=== PATIENT | female | born 1995 | race African-American/Black ===

== ENCOUNTER 2019-03-08 14:40 | Inpatient (IN) | payer MEDICAID ==
[~2019-03-08] VITALS: Ht 162.6 cm; Wt 45.4 kg
--- NOTE | 2019-03-08 16:32 | ERD ---
ER Documentation Chief Complaint Chief Complaint gen body pain from sicke cell pain. no trauma. seen in [place] [facility] for same HPI The patient is a 23-year-old female, presenting to the ER because of general body pain, back pain, chest pain, headache for 1 day. She had similar symptoms previously, she was seen at [facility] the ER prior to coming to our emergency department. She has frequent pain crisis similar symptoms. She denies fever, chills, cough, neck pain, chest pain, vomiting, abdominal pain, dysuria, diarrhea. She does not smoke nor drink, smokes marijuana Past medical history: Sickle cell anemia Past surgical history: Cholecystectomy, right knee arthroscopy ROS All systems reviewed and are negative except as per history of present illness. Medications Home Meds Reported Medications Deferasirox (Jadenu) 360 Mg Tablet, 360 MG PO DAILY, TAB 03/08/19 Folic Acid* (Folic Acid*) 1 Mg Tablet, 1 MG PO DAILY, TAB 03/08/19 Oxycodone Hcl* (IR) (Oxycodone Hcl*) 15 Mg Tablet, 15 MG PO BID PRN for PAIN, TAB 03/08/19 Hydroxyurea* (Hydroxyurea*) 500 Mg Capsule, 500 MG PO BID, CAP 03/08/19 Allergies Allergies: Coded Allergies: No Known Allergy (Unverified , 03/08/19) Physical Exam Vitals Vital Signs Date Temp Pulse Resp B/P (MAP) Pulse Ox O2 O2 Flow FiO2 Time Delivery Rate 03/08/19 92 18 97 21 17:35 03/08/19 97.9 88 18 108/70 97 Room Air 17:00 (83) 03/08/19 97.9 92 18 108/70 97 14:45 (83) Physical Exam Const: No acute distress. Head: Atraumatic. Eyes: Normal Conjunctiva. ENT: Normal External Ears, Nose and Mouth. Neck: Full range of motion. No meningismus. Resp: Mild ilateral expiratory wheezes Cardio: Regular rate and rhythm. Abd: Soft, non distended, normal bowel sounds, vague and minimal diffuse abdominal discomfort, no rigidity/rebound/CVA tenderness Skin: No petechiae or rashes. Back: No midline or flank tenderness. Ext: No cyanosis, or edema. Neur: Awake and alert. No focal deficit Psych: Normal Mood and Affect. Result Diagram: 03/08/19 1740 03/08/19 1740 Results 24 hrs Laboratory Tests Test 03/08/19 17:38 03/08/19 17:39 03/08/19 17:40 POC Beta HCG, Qualitative NEGATIVE Absolute Reticulocyte Count 0.825 X10^6 Percent Reticulocyte Count 31.9 % White Blood Count 12.8 10^3/ul Red Blood Count 2.56 10^6/ul Hemoglobin 8.8 g/dl Hematocrit 24.4 % Mean Corpuscular Volume 95.3 fl Mean Corpuscular Hemoglobin 34.4 pg Mean Corpuscular 36.1 g/dl Hemoglobin Concent Red Cell Distribution Width 24.3 % Platelet Count 240 10^3/UL Mean Platelet Volume 11.7 fl Immature Granulocytes % 1.300 % Neutrophils % % Segmented Neutrophils % (Manual) 46 % Band Neutrophils % (Manual) 4 % Lymphocytes % % Lymphocytes % (Manual) 41 % Monocytes % % Monocytes % (Manual) 5 % Eosinophils % % Eosinophils % (Manual) 4 % Basophils % % Nucleated Red Blood Cells % 29 % Immature Granulocytes # 0.160 10^3/ul Neutrophils # 10^3/ul Neutrophils # (Manual) 6.0 10^3/ul Band Neutrophils # 0.5 10^3/ul Lymphocytes (Manual) 5.2 10^3/ul Lymphocytes # 10^3/ul Monocytes # 10^3/ul Monocytes # (Manual) 0.6 10^3/ul Eosinophils # 10^3/ul Basophils # 10^3/ul Nucleated Red Blood Cells # 10^3/ul Platelet Estimate NORMAL Giant Platelets 2 % Polychromasia 2+ Poikilocytosis 3+ Anisocytosis 2+ Microcytosis 1+ Macrocytosis 2+ Sickle Cells 2+ Target Cells 3+ Sodium Level 141 mmol/L Potassium Level 3.4 mmol/L Chloride Level 105 mmol/L Carbon Dioxide Level 28 mmol/L Anion Gap 8 Blood Urea Nitrogen 5 mg/dl Creatinine 0.36 mg/dl Est Glomerular Filtrat Rate mL/min > 60 mL/min Glucose Level 85 mg/dl Calcium Level 9.6 mg/dl Total Bilirubin 3.8 mg/dl Direct Bilirubin 0.00 mg/dl Indirect Bilirubin 3.8 mg/dl Aspartate Amino Transf (AST/SGOT) 121 IU/L Alanine 75 IU/L Aminotransferase (ALT/SGPT) Alkaline Phosphatase 148 IU/L Total Protein 8.7 g/dl Albumin 4.7 g/dl Globulin 4.00 g/dl Albumin/Globulin Ratio 1.17 Lipase 27 U/L Beta HCG, Quantitative < 2.4 mIU/ml Current Medications Medications Dose Sig/Edyta Start Time Status Last (Trade) Ordered Route PRN Stop Time Admin Dose Reason Admin 1.25 mg ONCE ONCE 03/08/19 DC 03/08/19 Levalbuterol HHN 17:30 17:34 (Xopenex 03/08/19 17:31 Neb) Ipratropium 0.5 mg ONCE ONCE 03/08/19 DC 03/08/19 [place] HHN 17:30 17:34 (Atrovent 03/08/19 17:31 0.02% (Neb)) Sodium 1,000 ml @ Q1H ONCE 03/08/19 DC 03/08/19 Chloride 1,000 mls/hr IV 17:30 18:30 03/08/19 18:29 0.5 mg ONCE STAT 03/08/19 DC 03/08/19 Hydromorphone IV 17:53 18:30 HCl 03/08/19 17:55 (Dilaudid) 25 mg ONCE ONCE 03/08/19 DC 03/08/19 Diphenhydrami IV 18:00 18:30 ne HCl 03/08/19 18:01 (Benadryl) Sodium 1,000 ml @ [id number] IV 03/08/19 Chloride 75 mls/hr 21:00 IV Flush 3 ml PER 03/08/19 (NS 3 ml) PROTOCOL IV 19:30 Ondansetron 4 mg Q6H PRN 03/08/19 HCl (Zofran IV 19:30 Inj) NAUSEA/VOMITI NG 2 mg Q4H PRN 03/08/19 03/08/19 Hydromorphone IV .SEVERE 19:30 19:47 HCl PAIN 7-10 (Dilaudid) 50 mg Q4H PRN 03/08/19 03/08/19 Diphenhydrami IV itching 19:30 19:48 ne HCl (Benadryl) Folic Acid 1 mg DAILY PO 03/09/19 (Folic Acid) 09:00 Hydroxyurea 500 mg BID PO 03/08/19 (Hydrea) 22:00 Oxycodone 15 mg BID PRN 03/08/19 HCl PO PAIN 19:30 (Roxicodone) Potassium 40 meq ONCE ONCE 03/08/19 DC Chloride PO 22:00 (Potassium 03/08/19 22:01 Chloride Pwd/Soln) Procedures/[place] [id number] Radiology Main Line: [phone] DIAGNOSTIC IMAGING REPORT Patient: CHARLENE DELGADILLO : 1995 Age: 23 Sex: F MR #: [id number] DOS: 03/08/19 1716 Ordering MD: MODE SAUCEDO MD Location: E/R Room/Bed: PROCEDURE: XR Chest. CLINICAL INDICATION: Chest and abdominal pain. TECHNIQUE: Portable AP view of the chest was obtained. COMPARISON: None. FINDINGS: The cardiomediastinal silhouette is mildly enlarged . The lungs are clear. There is no evidence for pleural effusion, pneumothorax or pulmonary vascular congestion. The osseous structures are intact with no evidence for acute abnormality. No free air is demonstrated below the diaphragm. RPTAT:HJJR IMPRESSION: Mild cardiac silhouette enlargement without evidence for acute intrathoracic pathology. Physician Theron Date Time Electronically viewed and signed by Physician Theron on 03/08/2019 18:38 JR/ CC: MODE SAUCEDO MD [id number] Urinalysis/urine /reticulocyte count pending MEDICAL MAKING DECISION: The patient is a 23-year-old female, presenting with acute sickle cell pain crisis. She was treated with Xopenex 1.25 mg and Atrovent 0.5 mg for wheezing, 1 L normal saline for clinical dehydration, Dilaudid 0.5 mg IV for pain, Benadryl 25 mg IV for pruritus and potassium chloride 20 mEq p.o. for acute hypokalemia with good response. The differential diagnoses considered include but are not limited to dehydration, UTI, pneumonia, electrolyte imbalance Departure Diagnosis: Primary Impression: Sickle cell pain crisis Additional Impressions: Hypokalemia Anemia Abnormal LFTs Condition: Stable Comments I discussed the findings with the patient. I discussed the patient with Dr Wilkins ate 6:30p , who was made aware of the lab, the treatment, the patient condition. The patient is admitted to [facility] Disclaimer: Inadvertent spelling and grammatical errors are likely due to EHR/dictation software use and do not reflect on the overall quality of patient care. Also, please note that the electronic time recorded on this note does not necessarily reflect the actual time of the patient encounter. MODE SAUCEDO MD March 08, 2019 16:32
[2019-03-08] MEDS ORDERED: HYDR500C3 PO (17:25)
[2019-03-08] MEDS ORDERED: FOLI-49 PO (17:26)
[2019-03-08] MEDS ORDERED: OXYC15TA PO (17:26)
[2019-03-08] MEDS ORDERED: DEFE360T PO (17:27)
[2019-03-08] MEDS ORDERED: IPRATROPIUM (NEB) 0.5 MG/2.5 ML AMP HHN ONE (17:30)
[2019-03-08] MEDS ORDERED: LEVALBUTEROL (NEB) 1.25 MG/0.5 ML AMP HHN ONE (17:30)
[2019-03-08] MEDS ORDERED: SOD CHLORIDE 0.9% 1,000 ML IV ONE (17:30)
[2019-03-08] MEDS ORDERED: HYDROmorphONE 0.5 MG/0.5 ML SYG IV STA (17:53)
[2019-03-08] MEDS ORDERED: DIPHENHYDRAMINE 50 MG INJ IV ONE (18:00)
[2019-03-08] MEDS ORDERED: NACL 0.9% 3 ML SYG IV SCH (19:30)
[2019-03-08] MEDS ORDERED: ONDANSETRON 4 MG INJ IV PRN (19:30)
--- NOTE | 2019-03-08 19:45 | HP ---
Date/Time of Note Date/Time of Note DATE: 03/08/19 TIME: 19:29 Assessment/Plan VTE Prophylaxis SCD applied (from Nsg): Yes SCD contraindicated: other (not needed) Pharmacological prophylaxis: NA/contraindicated Pharm contraindication: low risk/ambulating Lines/Catheters IV Catheter Type (from Nrsg): [place] Assessment/Plan Assessment/Plan 23 yo woman with sickle cell disease presents in acute pain crisis #Sickle cell disease #Pain crisis - No vision changes, chest pain, or other concerning features - Aggressive fluid hydration - IV opioids prn - Patient is also asking for IV benadryl.... - Will consult hematology in AM for outpatient followup - Repeat Hgb in AM. Currently not requiring transfusion. DVT: SCDs GI: None Result Diagram: 03/08/19 [id number] HPI/ROS Admit Date/Time Admit Date/Time 08 Mar 2019 Hx of Present Illness Ms. Kinney is a 23 yo woman with history of sickle cell disease who presents in crisis. She was in her usual state of health until this past weekend, when she visited family in [place]. She had an active schedule and think she got dehydrated. Around 6pm she developed severe aching back pain and global headache. She took PO oxycodone but pain didn't improve. Couldn't sleep last night due to pain. She says pain is typical of prior crises. No vision changes, or angina-type chest pain. She does have mild pleuritic chest pain when she coughs. Her substance abuse services director is Dr. Mary Alice Lind in [place], but she's planning to move to [place] to be with her ill mother and will need a new substance abuse services director here. She takes all medications as prescribed. Requires oxycodone on average twice daily. Last crisis was 2 months ago, required hospitalization for 4 days and blood transfus ion. She does smoke marijuana. In the ED she was afebrile, vitals stable. Hgb 8.8. Otherwise labs unremarkable. ROS 12 point review of systems done, negative except per HPI. PMH/Family/Social Past Medical History Sickle cell disease Coded Allergies: No Known Allergy (Unverified , 03/08/19) Past Surgical History Cholecystectomy R knee surgery Social History Works two retail jobs. Alcohol Use: none Smoking Status: Never smoker Drug Use: marijuana (smokes marijuana daily. ) Exam/Review of Systems Vital Signs Vitals Vital Signs Date Temp Pulse Resp B/P (MAP) Pulse Ox O2 O2 Flow FiO2 Time Delivery Rate 03/08/19 92 18 97 21 17:35 03/08/19 97.9 108/70 14:45 (83) Exam Exam Gen: Thin woman uncomfortable appearing sitting in [place]. Eyes: PEERL, no icterus HEENT: Moist mucous membranes, clear oropharynx Neck: Stiff, painful range of motion. No lymphadenopathy Back: Exquisite midline spine tenderness throughout. Card: Regular rate and rhythm, no murmurs Pulm: Clear to auscultation bilaterally Abd: Soft, nontender, nondistended. Ext: No cyanosis/clubbing/edema Skin: warm, dry, well perfused. RIKY WOODS MD March 08, 2019 19:43
[2019-03-08] MEDS: HYDROmorphONE 2 MG/ML SYG IV PRN ×2 (19:47→22:21)
[2019-03-08] MEDS: DIPHENHYDRAMINE 50 MG INJ IV PRN ×3 (19:48→23:34)
[2019-03-08] MEDS ORDERED: POTASSIUM CHLORIDE 20 MEQ POWDER FOR ORAL SOLN PO ONE (22:00)
[2019-03-08 22:56] VITALS: Ht 162.6 cm; Wt 45.4 kg
[2019-03-08] MEDS: oxyCODONE 15 MG TAB PO PRN (23:16)
[2019-03-08] MEDS: SOD CHLORIDE 0.9% 1,000 ML IV SCH (23:23)
[2019-03-09] MEDS: HYDROXYUREA 500 MG CAP PO SCH ×3 (01:02→21:14)
[2019-03-09 02:00] VITALS: BP 93/55; PULSE 90; RESP 18
[2019-03-09] MEDS: HYDROmorphONE 2 MG/ML SYG IV PRN ×4 (02:25→20:01)
[2019-03-09] MEDS: DIPHENHYDRAMINE 50 MG INJ IV PRN ×4 (04:50→20:00)
[2019-03-09 08:01] VITALS: BP 105/55; PULSE 94; RESP 18
[2019-03-09] MEDS: FOLIC ACID 1 MG TAB PO SCH (08:53)
[2019-03-09] MEDS: oxyCODONE 15 MG TAB PO PRN ×2 (09:00→21:18)
[2019-03-09] MEDS ORDERED: hydrOXYzine HCL 100 MG INJ IM PRN (12:00)
[2019-03-09] MEDS ORDERED: hydrOXYzine HCL 25 MG TAB PO ONE (12:30)
[2019-03-09] MEDS ORDERED: hydrOXYzine HCL 25 MG TAB ONE (12:32)
[2019-03-09] MEDS: SOD CHLORIDE 0.9% 1,000 ML IV SCH (12:41)
[2019-03-09] MEDS ORDERED: hydrOXYzine HCL 25 MG TAB PO PRN (13:00)
[2019-03-09 14:30] VITALS: BP 99/50; PULSE 91; RESP 18
--- NOTE | 2019-03-09 15:40 | PN ---
Date/Time of Note Date/Time of Note DATE: 03/09/19 TIME: 15:38 Assessment/Plan VTE Prophylaxis Risk score (from Nsg)>0 risk: 3 SCD applied (from Ns): No SCD contraindicated: low risk/ambulating Pharmacological prophylaxis: NA/contraindicated Pharm contraindication: low risk/ambulating Lines/Catheters IV Catheter Type (from Nrsg): Peripheral IV Assessment/Plan Assessment/Plan 23 yo woman with sickle cell disease presents in acute pain crisis #Sickle cell disease #Pain crisis - No vision changes, chest pain, or other concerning features - Aggressive fluid hydration - IV opioids prn - Oxygen as needed. - Continue IV benadryl for itching. - Trend Hgb. Will transfuse for Hgb<7. DVT: SCDs GI: None Result Diagram: 03/09/19 0440 03/09/19 0438 Subjective 24 Hr Interval Summary Free Text/Dictation No acute overnight events. Continues to require dilaudid and benadryl ATC. Exam/Review of Systems Exam Vitals Vital Signs Date Temp Pulse Resp B/P (MAP) Pulse Ox O2 O2 Flow FiO2 Time Delivery Rate 03/09/19 98.0 91 18 99/50 (66) 92 14:30 03/08/19 Nasal 2.0 22:26 Cannula 03/08/19 21 17:35 Exam Gen: Thin woman uncomfortable appearing sitting in rney. Eyes: PEERL, no icterus HEENT: Moist mucous membranes, clear oropharynx Neck: Stiff, painful range of motion. No lymphadenopathy Back: Exquisite midline spine tenderness throughout. Card: Regular rate and rhythm, no murmurs Pulm: Clear to auscultation bilaterally Abd: Soft, nontender, nondistended. Ext: No cyanosis/clubbing/edema Skin: warm, dry, well perfused. Results Results 24hrs Laboratory Tests Test 03/08/19 17:38 03/08/19 17:39 03/08/19 17:40 03/09/19 04:38 POC Beta HCG, NEGATIVE Qualitative Absolute 0.825 H Reticulocyte Count Percent Reticulocyte 31.9 H Count White Blood Count 12.8 H Red Blood Count 2.56 L Hemoglobin 8.8 L Hematocrit 24.4 L Mean Corpuscular 95.3 Volume Mean Corpuscular 34.4 H Hemoglobin Mean Corpuscular 36.1 Hemoglobin Concent Red Cell 24.3 H Distribution Width Platelet Count 240 Mean Platelet Volume 11.7 H Immature 1.300 H Granulocytes % Neutrophils % Segmented 46 Neutrophils % (Manual) Band Neutrophils % 4 (Manual) Lymphocytes % Lymphocytes % 41 (Manual) Monocytes % Monocytes % (Manual) 5 Eosinophils % Eosinophils % 4 (Manual) Basophils % Nucleated Red Blood 29 H Cells % Immature 0.160 H Granulocytes # Neutrophils # Neutrophils # 6.0 (Manual) Band Neutrophils # 0.5 Lymphocytes (Manual) 5.2 H Lymphocytes # Monocytes # Monocytes # (Manual) 0.6 Eosinophils # Basophils # Nucleated Red Blood Cells # Platelet Estimate NORMAL Giant Platelets 2 H Polychromasia 2+ Poikilocytosis 3+ Anisocytosis 2+ Microcytosis 1+ Macrocytosis 2+ Sickle Cells 2+ Target Cells 3+ Sodium Level 141 140 Potassium Level 3.4 L 4.6 Chloride Level 105 107 Carbon Dioxide Level 28 28 Anion Gap 8 5 Blood Urea Nitrogen 5 L 4 L Creatinine 0.36 L 0.41 L Est Glomerular > 60 > 60 Filtrat Rate mL/min Glucose Level 85 76 Calcium Level 9.6 8.8 Total Bilirubin 3.8 H 2.9 H Direct Bilirubin 0.00 0.00 Indirect Bilirubin 3.8 H 2.9 H Aspartate Amino 121 H 106 H Transf (AST/SGOT) Alanine 75 H 75 H Aminotransferase (AL T/SGPT) Alkaline Phosphatase 148 H 99 Total Protein 8.7 H 7.1 # Albumin 4.7 4.0 Globulin 4.00 H 3.10 Albumin/Globulin 1.17 1.29 Ratio Lipase 27 Beta HCG, < 2.4 Quantitative Hemoglobin A1c Phosphorus Level 4.7 Magnesium Level 1.9 Thyroid Stimulating 2.650 Hormone (TSH) Test 03/09/19 04:40 White Blood Count 12.2 H Red Blood Count 2.09 L Hemoglobin 7.1 L Hematocrit 20.2 L Mean Corpuscular 96.7 Volume Mean Corpuscular 34.0 H Hemoglobin Mean Corpuscular 35.1 Hemoglobin Concent Red Cell 22.5 H Distribution Width Platelet Count 154 # Mean Platelet Volume 12.7 H Immature 1.100 H Granulocytes % Neutrophils % 51.5 Lymphocytes % 39.3 Monocytes % 7.0 Eosinophils % 0.7 Basophils % 0.4 Nucleated Red Blood 22.5 H Cells % Immature 0.140 H Granulocytes # Neutrophils # 6.3 Lymphocytes # 4.8 H Monocytes # 0.9 Eosinophils # 0.1 Basophils # 0.1 Nucleated Red Blood 2.7 H Cells # Medications Medication Current Medications Sodium Chloride 1,000 ml @ 75 mls/hr [id number] IV Last administered on 03/09/19 12:41; Admin Dose 75 MLS/HR; Start 03/08/19 at 21:00 IV Flush (NS 3 ml) 3 ml PER PROTOCOL IV ; Start 03/08/19 at 19:30 Ondansetron HCl (Zofran Inj) 4 mg Q6H PRN IV NAUSEA/VOMITING Last administered on 03/08/19 23:48; Admin Dose 4 MG; Start 03/08/19 at 19:30 Diphenhydramine HCl (Benadryl) 50 mg Q4H PRN IV itching--> IF CAN'T TAKE PO... Last administered on 03/09/19 08:53; Admin Dose 50 MG; Start 03/08/19 at 19:30 Folic Acid (Folic Acid) 1 mg DAILY PO Last administered on 03/09/19 08:53; Admin Dose 1 MG; Start 03/09/19 at 09:00 Hydroxyurea (Hydrea) 500 mg BID PO Last administered on 03/09/19 08:59; Admin Dose 500 MG; Start 03/08/19 at 22:00 Oxycodone HCl (Roxicodone) 15 mg BID PRN PO PAIN Last administered on 03/09/19 09:00; Admin Dose 15 MG; Start 03/08/19 at 19:30 Hydromorphone HCl (Dilaudid) 4 mg Q4H PRN IV .SEVERE PAIN 7-10; Start 03/09/19 at 13:00 Hydroxyzine HCl (Atarax) 50 mg Q6H PRN PO ITCHING......; Start 03/09/19 at 13:00 RIKY WOODS MD March 09, 2019 15:40
[2019-03-09] MEDS ORDERED: HYDROmorphONE 0.5 MG/0.5 ML SYG IV STA (15:56)
[2019-03-09] MEDS: ONDANSETRON 4 MG INJ IV PRN (19:59)
[2019-03-09 20:00] VITALS: BP 92/45; PULSE 86; RESP 19
[2019-03-10] MEDS: HYDROmorphONE 2 MG/ML SYG IV PRN ×6 (00:05→21:44)
[2019-03-10] MEDS: DIPHENHYDRAMINE 50 MG INJ IV PRN ×6 (00:06→21:45)
[2019-03-10] MEDS: ONDANSETRON 4 MG INJ IV PRN ×6 (00:06→21:44)
[2019-03-10 02:00] VITALS: BP 120/65; PULSE 120; RESP 19
[2019-03-10] MEDS: SOD CHLORIDE 0.9% 1,000 ML IV SCH ×2 (02:11→13:16)
[2019-03-10 08:54] VITALS: BP 107/54; PULSE 103; RESP 18
[2019-03-10] MEDS: FOLIC ACID 1 MG TAB PO SCH (09:09)
[2019-03-10] MEDS: HYDROXYUREA 500 MG CAP PO SCH ×2 (09:09→21:44)
[2019-03-10] MEDS: oxyCODONE 15 MG TAB PO PRN (11:49)
--- NOTE | 2019-03-10 13:59 | PN ---
Date/Time of Note Date/Time of Note DATE: 03/10/19 TIME: 13:55 Assessment/Plan VTE Prophylaxis Risk score (from Nsg)>0 risk: 2 SCD applied (from Nsg): Yes Pharmacological prophylaxis: NA/contraindicated Pharm contraindication: low risk/ambulating Lines/Catheters IV Catheter Type (from Nrsg): Peripheral IV Urinary Cath still in place: No Assessment/Plan Assessment/Plan 23 yo woman with sickle cell disease presents in acute pain crisis #Sickle cell disease #Pain crisis - No vision changes, chest pain, or other concerning features - Aggressive fluid hydration - IV opioids prn - Oxygen as needed. - Continue IV benadryl for itching. - Trend Hgb. - Patient has history of iron overload on deferasirox. Will check ferritin in AM. If patient needs transfusion may need to plan exchange transfusion (also patient and mother would prefer exchange transfusion). DVT: SCDs GI: None Result Diagram: 03/09/19 0440 03/09/19 0438 Subjective 24 Hr Interval Summary Free Text/Dictation She had nausea and vomiting last night and today around noon. Nausea resolved after zofran and she has been tolerating diet since. Continues to have back pain and headache. Exam/Review of Systems Exam Vitals Vital Signs Date Temp Pulse Resp B/P (MAP) Pulse Ox O2 O2 Flow FiO2 Time Delivery Rate 03/10/19 98.0 103 18 107/54 80 Room Air 08:54 (71) 03/08/19 2.0 22:26 03/08/19 21 17:35 Intake and Output 03/09/19 03/09/19 03/10/19 1515:00 23:00 07:00 IntakeIntake Total 1000 ml 1000 ml 1300 ml BalanceBalance 1000 ml 1000 ml 1300 ml Exam Gen: Thin woman uncomfortable appearing sitting in bed. Eyes: PEERL, no icterus HEENT: Moist mucous membranes, clear oropharynx Neck: Stiff, painful range of motion. No lymphadenopathy Back: Exquisite midline spine tenderness throughout. Card: Regular rate and rhythm, no murmurs Pulm: Clear to auscultation bilaterally Abd: Soft, nontender, nondistended. Ext: No cyanosis/clubbing/edema Skin: warm, dry, well perfused. Medications Medication Current Medications Sodium Chloride 1,000 ml @ 75 mls/hr [id number] IV Last administered on 03/10/19 13:16; Admin Dose 75 MLS/HR; Start 03/08/19 at 21:00 IV Flush (NS 3 ml) 3 ml PER PROTOCOL IV ; Start 03/08/19 at 19:30 Diphenhydramine HCl (Benadryl) 50 mg Q4H PRN IV itching--> IF CAN'T TAKE PO... Last administered on 03/10/19 13:15; Admin Dose 50 MG; Start 03/08/19 at 19:30 Folic Acid (Folic Acid) 1 mg DAILY PO Last administered on 03/10/19 09:09; Adm in Dose 1 MG; Start 03/09/19 at 09:00 Hydroxyurea (Hydrea) 500 mg BID PO Last administered on 03/10/19 09:09; Admin Dose 500 MG; Start 03/08/19 at 22:00 Oxycodone HCl (Roxicodone) 15 mg BID PRN PO PAIN Last administered on 03/10/19 11:49; Admin Dose 15 MG; Start 03/08/19 at 19:30 Hydromorphone HCl (Dilaudid) 4 mg Q4H PRN IV .SEVERE PAIN 7-10 Last administered on 03/10/19 13:14; Admin Dose 4 MG; Start 03/09/19 at 13:00 Hydroxyzine HCl (Atarax) 50 mg Q6H PRN PO ITCHING......; Start 03/09/19 at 13:00 Ondansetron HCl (Zofran Inj) 4 mg Q4H PRN IV NAUSEA AND/OR VOMITING Last administered on 03/10/19 13:14; Admin Dose 4 MG; Start 03/09/19 at 18:30 RIKY WOODS MD March 10, 2019 13:59
[2019-03-10 14:00] VITALS: BP 114/60; PULSE 100; RESP 18
[2019-03-10] MEDS ORDERED: oxyCODONE 15 MG TAB PO PRN (14:00)
[2019-03-10 20:00] VITALS: BP 112/54; PULSE 101; RESP 17
[2019-03-11 02:16] VITALS: BP 108/56; PULSE 109; RESP 17
[2019-03-11] MEDS: HYDROmorphONE 2 MG/ML SYG IV PRN ×6 (02:18→21:43)
[2019-03-11] MEDS: ONDANSETRON 4 MG INJ IV PRN ×6 (02:18→21:42)
[2019-03-11] MEDS: DIPHENHYDRAMINE 50 MG INJ IV PRN ×6 (02:18→21:42)
[2019-03-11] MEDS: SOD CHLORIDE 0.9% 1,000 ML IV SCH ×2 (03:19→15:40)
[2019-03-11 07:30] VITALS: BP 107/54; PULSE 101; RESP 20
[2019-03-11] MEDS: FOLIC ACID 1 MG TAB PO SCH (09:20)
[2019-03-11] MEDS: HYDROXYUREA 500 MG CAP PO SCH ×2 (09:21→21:44)
--- NOTE | 2019-03-11 11:03 | CONS ---
Assessment/Plan Assessment/Plan Hospital Course (Demo Recall) #Sickle Cell Pain Crisis #Iron overload -At this time will transfuse 2 units or PRBCs. I do not feel exchange transfusion is needed at this time -continue Jadenu 500 mg q day that she is taking as an out patient -pt will need out patient follow up at a tertiary care center so she can receive regular out patient RBC exchange transfusions. Case management consult placed for patient to be followed up at [facility] with Dr. Ana Maria Alfonso Thank you for the opportunity to participate in this patients care A total of 40 minutes of face to face time was spent speaking with the patient, of which greater than 50% was spent in counseling and coordination of care and the detailed question and answer session. Consultation Date/Type/Reason Admit Date/Time 08 Mar 2019 Date of Consultation: March 11, 2019 Type of Consult Hematology Reason for Consultation sickle cell anemia Requesting Provider: RIKY WOODS MD Date/Time of Note DATE: 03/11/19 TIME: 10:51 Hx of Present Illness Ms Kinney is a pleasant 23 yo female who was diagnosed with Sickle Cell Anemia at 3mo of age. She was initially treated at [facility] in [place]. At age 5 she started to received regular RBC exchange transfusions as often as every 3 weeks. Pt is now admitted for pain crisis. She is currently comfortable on Dilaudid 4mg IV q 4 hours. 03/08/19 CXR negative for acute cardiopulmonary process Constitutional: chills, poor po Eyes: no complaints Respiratory: no complaints Cardiovascular: lightheadedness Gastrointestinal: pain, decreased appetite Genitourinary: no complaints Musculoskeletal: back pain, bone/joint pain Skin: pruritis Neurologic: headache Endocrine: no complaints Past Medical History sickle cell anemia Home Meds Reported Medications Deferasirox (Jadenu) 360 Mg Tablet, 360 MG PO DAILY, TAB 03/08/19 Folic Acid* (Folic Acid*) 1 Mg Tablet, 1 MG PO DAILY, TAB 03/08/19 Oxycodone Hcl* (IR) (Oxycodone Hcl*) 15 Mg Tablet, 15 MG PO BID PRN for PAIN, TAB 03/08/19 Hydroxyurea* (Hydroxyurea*) 500 Mg Capsule, 500 MG PO BID, CAP 03/08/19 Medications Current Medications Sodium Chloride 1,000 ml @ 75 mls/hr [id number] IV Last administered on 03/11/19 03:19; Admin Dose 75 MLS/HR; Start 03/08/19 at 21:00 IV Flush (NS 3 ml) 3 ml PER PROTOCOL IV ; Start 03/08/19 at 19:30 Diphenhydramine HCl (Benadryl) 50 mg Q4H PRN IV itching--> IF CAN'T TAKE PO... Last administered on 03/11/19 10:44; Admin Dose 50 MG; Start 03/08/19 at 19:30 Folic Acid (Folic Acid) 1 mg DAILY PO Last administered on 03/11/19 09:20; Admin Dose 1 MG; Start 03/09/19 at 09:00 Hydroxyurea (Hydrea) 500 mg BID PO Last administered on 03/11/19 09:21; Admin Dose 500 MG; Start 03/08/19 at 22:00 Hydroxyzine HCl (Atarax) 50 mg Q6H PRN PO ITCHING......; Start 03/09/19 at 13:00 Ondansetron HCl (Zofran Inj) 4 mg Q4H PRN IV NAUSEA AND/OR VOMITING Last administered on 03/11/19at 10:42; Admin Dose 4 MG; Start 03/09/19 at 18:30 Hydromorphone HCl (Dilaudid) 4 mg Q4H PRN IV .SEVERE PAIN 7-10 Last administered on 03/11/19at 10:44; Admin Dose 4 MG; Start 03/10/19 at 17:00 Oxycodone HCl (Roxicodone) 30 mg BID PRN PO PAIN; Start 03/10/19 at 14:00 Acetaminophen (Tylenol Tab) 650 mg Q6H PRN PO headache; Start 03/10/19 at 14:00 Allergies: Coded Allergies: ibuprofen (Verified Allergy, Unknown, 03/09/19) Past Surgical History Past Surgical Hx: no surgical history Family History Significant Family History: no pertinent family hx Social History Alcohol Use: none Smoking Status: Never smoker Drug Use: marijuana (smokes marijuana daily. ) Exam/Review of Systems Exam Vitals Vital Signs Date Temp Pulse Resp B/P (MAP) Pulse Ox O2 O2 Flow FiO2 Time Delivery Rate 03/11/19 98.8 101 20 107/54 94 Nasal 2.0 07:30 (71) Cannula 03/08/19 21 17:35 Intake and Output 03/10/19 03/10/19 03/11/19 1515:00 23:00 07:00 IntakeIntake Total 1100 ml 590 ml BalanceBalance 1100 ml 590 ml Constitutional: alert Psych: anxiety, depression Head: normocephalic Eyes: nl conjunctiva ENMT: nl external ears & nose Neck: supple Respiratory: clear to auscultation Cardiovascular: regular rate and rhythm Gastrointestinal: soft Musculoskeletal: nl extremities to inspection Extremities: normal pulses Results Result Diagram: 03/11/19 0438 03/11/19 0438 Results 24hrs Laboratory Tests Test 03/10/19 14:48 03/11/19 04:38 03/11/19 10:06 White Blood Count 15.7 #H 15.0 H Red Blood Count 2.02 L 1.77 L Hemoglobin 6.8 *L 6.0 *L Hematocrit 18.5 L 16.3 L Mean Corpuscular Volume 91.6 92.1 Mean Corpuscular Hemoglobin 33.7 H 33.9 H Mean Corpuscular 36.8 36.8 Hemoglobin Concent Red Cell Distribution Width 24.8 H 23.5 H Platelet Count 168 166 Mean Platelet Volume 11.5 H 12.4 H Immature Granulocytes % 2.300 H 2.300 H Neutrophils % 60.5 Segmented Neutrophils % (Manual) 43 Band Neutrophils % (Manual) 1 Lymphocytes % 30.6 Lymphocytes % (Manual) 44 Monocytes % 5.9 Monocytes % (Manual) 10 Eosinophils % 0.4 Eosinophils % (Manual) 1 Basophils % 0.3 Myelocytes % (Manual) 1 H Nucleated Red Blood Cells % 23 H 25.2 H Immature Granulocytes # 0.360 H 0.340 H Neutrophils # 9.1 H Neutrophils # (Manual) 6.8 Band Neutrophils # 0.1 Lymphocytes (Manual) 6.9 H Lymphocytes # 4.6 H Monocytes # 0.9 Monocytes # (Manual) 1.5 H Eosinophils # 0.1 Basophils # 0.0 Myelocytes # 0.1 H Nucleated Red Blood Cells # 3.8 H Platelet Estimate NORMAL Polychromasia 3+ Poikilocytosis 3+ Anisocytosis 2+ Macrocytosis 2+ Sickle Cells 3+ Target Cells 3+ Sodium Level 137 137 Potassium Level 4.1 4.0 Chloride Level 102 103 Carbon Dioxide Level 29 30 Anion Gap 6 4 L Blood Urea Nitrogen 4 L 4 L Creatinine 0.36 L 0.40 L Est Glomerular Filtrat > 60 > 60 Rate mL/min Glucose Level 82 73 Calcium Level 9.0 8.7 Total Bilirubin 4.0 H 3.8 H Direct Bilirubin 0.00 0.00 Indirect Bilirubin 4.0 H 3.8 H Aspartate Amino Transf (AST/SGOT) 130 H 125 H Alanine 77 H 73 H Aminotransferase (ALT/SGPT) Alkaline Phosphatase 122 H 100 Total Protein 7.9 7.2 Albumin 4.3 3.8 Globulin 3.60 H 3.40 H Albumin/Globulin Ratio 1.19 1.11 Phosphorus Level 4.1 Magnesium Level 1.6 L Lab Scanned Report REFERENCE LAB Medications Medication Current Medications Sodium Chloride 1,000 ml @ 75 mls/hr [id number] IV Last administered on 03/11/19 03:19; Admin Dose 75 MLS/HR; Start 03/08/19 at 21:00 IV Flush (NS 3 ml) 3 ml PER PROTOCOL IV ; Start 03/08/19 at 19:30 Diphenhydramine HCl (Benadryl) 50 mg Q4H PRN IV itching--> IF CAN'T TAKE PO... Last administered on 03/11/19 10:44; Admin Dose 50 MG; Start 03/08/19 at 19:30 Folic Acid (Folic Acid) 1 mg DAILY PO Last administered on 03/11/19 09:20; Admin Dose 1 MG; Start 03/09/19 at 09:00 Hydroxyurea (Hydrea) 500 mg BID PO Last administered on 03/11/19 09:21; Admin Dose 500 MG; Start 03/08/19 at 22:00 Hydroxyzine HCl (Atarax) 50 mg Q6H PRN PO ITCHING......; Start 03/09/19 at 13:00 Ondansetron HCl (Zofran Inj) 4 mg Q4H PRN IV NAUSEA AND/OR VOMITING Last administered on 03/11/19 10:42; Admin Dose 4 MG; Start 03/09/19 at 18:30 Hydromorphone HCl (Dilaudid) 4 mg Q4H PRN IV .SEVERE PAIN 7-10 Last administered on 03/11/19 10:44; Admin Dose 4 MG; Start 03/10/19 at 17:00 Oxycodone HCl (Roxicodone) 30 mg BID PRN PO PAIN; Start 03/10/19 at 14:00 Acetaminophen (Tylenol Tab) 650 mg Q6H PRN PO headache; Start 03/10/19 at 14:00 OLIVERIO CATES M.D. March 11, 2019 11:03
[2019-03-11] MEDS: ACETAMINOPHEN 325 MG TAB PO PRN ×2 (11:26→21:42)
[2019-03-11] MEDS ORDERED: MAGNESIUM SULFATE 3 GM in DEXTROSE 5% 100 ML IVPB ONE (12:00)
[2019-03-11 14:00] VITALS: BP 101/54; PULSE 98; RESP 20
--- NOTE | 2019-03-11 14:54 | PN ---
Date/Time of Note Date/Time of Note DATE: 03/11/19 TIME: 14:50 Assessment/Plan VTE Prophylaxis Risk score (from Ns)>0 risk: 1 SCD applied (from Ns): Yes Pharmacological prophylaxis: NA/contraindicated Pharm contraindication: other Lines/Catheters IV Catheter Type (from Nrsg): Peripheral IV Urinary Cath still in place: No Assessment/Plan Hospital Course 23 yo woman with sickle cell disease presents in acute pain crisis #Sickle cell disease #Pain crisis - No vision changes, chest pain, or other concerning features - Aggressive fluid hydration - IV opioids prn - Oxygen as needed. - Continue IV benadryl for itching. -Hemoglobin has dropped today, transfuse 1 unit DVT: SCDs DC planning: Patient still in pain today, also required 1 unit of blood, monitor hemoglobin a.m., anticipate DC home in 1 to 2 days Result Diagram: 03/11/19 0438 03/11/19 0438 Results 24hrs Laboratory Tests Test 03/11/19 04:38 03/11/19 10:06 White Blood Count 15.0 H Red Blood Count 1.77 L Hemoglobin 6.0 *L Hematocrit 16.3 L Mean Corpuscular Volume 92.1 Mean Corpuscular Hemoglobin 33.9 H Mean Corpuscular Hemoglobin Concent 36.8 Red Cell Distribution Width 23.5 H Platelet Count 166 Mean Platelet Volume 12.4 H Immature Granulocytes % 2.300 H Neutrophils % 60.5 Lymphocytes % 30.6 Monocytes % 5.9 Eosinophils % 0.4 Basophils % 0.3 Nucleated Red Blood Cells % 25.2 H Immature Granulocytes # 0.340 H Neutrophils # 9.1 H Lymphocytes # 4.6 H Monocytes # 0.9 Eosinophils # 0.1 Basophils # 0.0 Nucleated Red Blood Cells # 3.8 H Sodium Level 137 Potassium Level 4.0 Chloride Level 103 Carbon Dioxide Level 30 Anion Gap 4 L Blood Urea Nitrogen 4 L Creatinine 0.40 L Est Glomerular Filtrat Rate mL/min > 60 Glucose Level 73 Calcium Level 8.7 Phosphorus Level 4.1 Magnesium Level 1.6 L Total Bilirubin 3.8 H Direct Bilirubin 0.00 Indirect Bilirubin 3.8 H Aspartate Amino Transf (AST/SGOT) 125 H Alanine Aminotransferase (ALT/SGPT) 73 H Alkaline Phosphatase 100 Total Protein 7.2 Albumin 3.8 Globulin 3.40 H Albumin/Globulin Ratio 1.11 Lab Scanned Report REFERENCE LAB Subjective 24 Hr Interval Summary Musculoskeletal: bone/joint pain Exam/Review of Systems Exam Vitals Vital Signs Date Temp Pulse Resp B/P (MAP) Pulse Ox O2 O2 Flow FiO2 Time Delivery Rate 03/11/19 98.9 98 20 101/54 95 Nasal 2.0 14:00 (70) Cannula 03/08/19 21 17:35 Intake and Output 03/10/19 03/10/19 03/11/19 1515:00 23:00 07:00 IntakeIntake Total 1100 ml 590 ml BalanceBalance 1100 ml 590 ml Constitutional: alert, oriented Respiratory: clear to auscultation Cardiovascular: regular rate and rhythm Gastrointestinal: soft; No distended Musculoskeletal: nl extremities to inspection Results Results 24hrs Laboratory Tests Test 03/11/19 04:38 03/11/19 10:06 White Blood Count 15.0 H Red Blood Count 1.77 L Hemoglobin 6.0 *L Hematocrit 16.3 L Mean Corpuscular Volume 92.1 Mean Corpuscular Hemoglobin 33.9 H Mean Corpuscular Hemoglobin Concent 36.8 Red Cell Distribution Width 23.5 H Platelet Count 166 Mean Platelet Volume 12.4 H Immature Granulocytes % 2.300 H Neutrophils % 60.5 Lymphocytes % 30.6 Monocytes % 5.9 Eosinophils % 0.4 Basophils % 0.3 Nucleated Red Blood Cells % 25.2 H Immature Granulocytes # 0.340 H Neutrophils # 9.1 H Lymphocytes # 4.6 H Monocytes # 0.9 Eosinophils # 0.1 Basophils # 0.0 Nucleated Red Blood Cells # 3.8 H Sodium Level 137 Potassium Level 4.0 Chloride Level 103 Carbon Dioxide Level 30 Anion Gap 4 L Blood Urea Nitrogen 4 L Creatinine 0.40 L Est Glomerular Filtrat Rate mL/min > 60 Glucose Level 73 Calcium Level 8.7 Phosphorus Level 4.1 Magnesium Level 1.6 L Total Bilirubin 3.8 H Direct Bilirubin 0.00 Indirect Bilirubin 3.8 H Aspartate Amino Transf (AST/SGOT) 125 H Alanine Aminotransferase (ALT/SGPT) 73 H Alkaline Phosphatase 100 Total Protein 7.2 Albumin 3.8 Globulin 3.40 H Albumin/Globulin Ratio 1.11 Lab Scanned Report REFERENCE LAB Medications Medication Current Medications Sodium Chloride 1,000 ml @ 75 mls/hr [id number] IV Last administered on 03/11/19at 03:19; Admin Dose 75 MLS/HR; Start 03/08/19 at 21:00 IV Flush (NS 3 ml) 3 ml PER PROTOCOL IV ; Start 03/08/19 at 19:30 Diphenhydramine HCl (Benadryl) 50 mg Q4H PRN IV itching--> IF CAN'T TAKE PO... Last administered on 03/11/19 10:44; Admin Dose 50 MG; Start 03/08/19 at 19:30 Folic Acid (Folic Acid) 1 mg DAILY PO Last administered on 03/11/19 09:20; Admin Dose 1 MG; Start 03/09/19 at 09:00 Hydroxyurea (Hydrea) 500 mg BID PO Last administered on 03/11/19 09:21; Admin Dose 500 MG; Start 03/08/19 at 22:00 Hydroxyzine HCl (Atarax) 50 mg Q6H PRN PO ITCHING......; Start 03/09/19 at 13:00 Ondansetron HCl (Zofran Inj) 4 mg Q4H PRN IV NAUSEA AND/OR VOMITING Last administered on 03/11/19 10:42; Admin Dose 4 MG; Start 03/09/19 at 18:30 Hydromorphone HCl (Dilaudid) 4 mg Q4H PRN IV .SEVERE PAIN 7-10 Last administered on 03/11/19 10:44; Admin Dose 4 MG; Start 03/10/19 at 17:00 Oxycodone HCl (Roxicodone) 30 mg BID PRN PO PAIN; Start 03/10/19 at 14:00 Acetaminophen (Tylenol Tab) 650 mg Q6H PRN PO headache Last administered on 03/11/19 11:26; Admin Dose 650 MG; Start 03/10/19 at 14:00 Magnesium Sulfate 3 gm/Dextrose 106 ml @ 35.333 mls/ hr ONCE ONCE IVPB Last administered on 03/11/19 14:45; Admin Dose 35.333 MLS/HR; Start 03/11/19 at 12:00; Stop 03/11/19 at 14:59 YULISA CARRILLO March 11, 2019 14:54
[2019-03-11 20:00] VITALS: BP 104/55; PULSE 107; RESP 19
[2019-03-12] MEDS: HYDROmorphONE 2 MG/ML SYG IV PRN ×6 (01:49→22:13)
[2019-03-12] MEDS: ONDANSETRON 4 MG INJ IV PRN ×6 (01:49→22:13)
[2019-03-12] MEDS: DIPHENHYDRAMINE 50 MG INJ IV PRN ×6 (01:49→22:29)
[2019-03-12 02:00] VITALS: BP 112/58; PULSE 93; RESP 19
[2019-03-12 08:00] VITALS: BP 109/59; PULSE 92; RESP 18
[2019-03-12] MEDS: FOLIC ACID 1 MG TAB PO SCH (09:51)
[2019-03-12] MEDS: HYDROXYUREA 500 MG CAP PO SCH ×2 (09:52→22:28)
[2019-03-12 14:00] VITALS: BP 109/59; PULSE 93; RESP 19
--- NOTE | 2019-03-12 16:57 | CONS ---
Assessment/Plan Assessment/Plan Assessment/Plan (Daily) # Sickle Cell Pain Crisis. Hgb 10.1 today - pain control - IVF # Iron overload - 1 units or PRBC transfusion today s. I do not feel exchange transfusion is needed at this time - continue Jadenu 500 mg q day that she is taking as an out patient - pt will need out patient follow up at a tertiary care center so she can receive regular out patient RBC exchange transfusions. - Case management consult placed for patient to be followed up at [facility] with Dr. Ana Maria Alfonso Patient seen in collaboration with Dr álvarez Consultation Date/Type/Reason Admit Date/Time March 10, 2019 at 04:55 Initial Consult Date 03/11/19 Type of Consult Hematology/ Oncology Reason for Consultation Sickle Cell Crisis Requesting Provider: RIKY WOODS MD Date/Time of Note DATE: 03/12/19 TIME: 16:56 24 HR Interval Summary Free Text/Dictation resting; seems comfortable Hgb 10.1 today no events reported last night dw staff Constitutional: requiring IVF Detailed Summary Eyes: no complaints ENT: no complaints Respiratory: no complaints Cardiovascular: no complaints Gastrointestinal: no complaints Genitourinary: no complaints Musculoskeletal: other (generelized body pain) Skin: no complaints Neurologic: no complaints Endocrine: no complaints Lymphatic: no complaints Psychological: nl mood/affect Immunologic: no complaints Exam/Review of Systems Exam Vitals Vital Signs Date Temp Pulse Resp B/P (MAP) Pulse Ox O2 O2 Flow FiO2 Time Delivery Rate 03/12/19 97.9 93 19 109/59 93 Nasal 14:00 (76) Cannula 03/11/19 2.0 14:00 03/08/19 21 17:35 Intake and Output 03/11/19 03/11/19 03/12/19 1414:59 22:59 06:59 IntakeIntake Total 1766 ml 700 ml BalanceBalance 1766 ml 700 ml Constitutional: alert, well developed Psych: nl mood/affect Head: normocephalic Eyes: nl lids, nl sclera ENMT: nl external ears & nose Neck: non-tender Respiratory: clear to auscultation Cardiovascular: nl pulses, other (s1s2) Gastrointestinal: soft, non-tender Musculoskeletal: nl extremities to inspection Extremities: normal pulses Neurological: nl mental status, nl speech Skin: nl turgor Results Result Diagram: 6/1/19 0518 6/1/19 0518 Results 24hrs Laboratory Tests Test 03/12/19 05:18 White Blood Count 9.8 # Red Blood Count 3.10 #L Hemoglobin 10.1 #L Hematocrit 28.0 #L Mean Corpuscular Volume 90.3 Mean Corpuscular Hemoglobin 32.6 Mean Corpuscular Hemoglobin Concent 36.1 Red Cell Distribution Width 20.7 H Platelet Count 219 # Mean Platelet Volume 12.1 H Immature Granulocytes % 2.200 H Neutrophils % 68.1 Lymphocytes % 23.5 Monocytes % 5.3 Eosinophils % 0.5 Basophils % 0.4 Nucleated Red Blood Cells % 54.9 H Immature Granulocytes # 0.220 H Neutrophils # 6.7 Lymphocytes # 2.3 Monocytes # 0.5 Eosinophils # 0.1 Basophils # 0.0 Nucleated Red Blood Cells # 5.4 H Sodium Level 140 Potassium Level 4.5 Chloride Level 102 Carbon Dioxide Level 34 H Anion Gap 4 L Blood Urea Nitrogen 6 L Creatinine 0.47 Est Glomerular Filtrat Rate mL/min > 60 Glucose Level 88 Calcium Level 9.0 Total Bilirubin 3.3 H Direct Bilirubin 0.00 Indirect Bilirubin 3.3 H Aspartate Amino Transf (AST/SGOT) 131 H Alanine Aminotransferase (ALT/SGPT) 71 H Alkaline Phosphatase 107 Total Protein 7.7 Albumin 4.2 Globulin 3.50 H Albumin/Globulin Ratio 1.20 Medications Medication Current Medications IV Flush (NS 3 ml) 3 ml PER PROTOCOL IV ; Start 03/08/19 at 19:30 Diphenhydramine HCl (Benadryl) 50 mg Q4H PRN IV itching--> IF CAN'T TAKE PO... Last administered on 03/12/19at 13:53; Admin Dose 50 MG; Start 03/08/19 at 19:30 Folic Acid (Folic Acid) 1 mg DAILY PO Last administered on 03/12/19at 09:51; Admin Dose 1 MG; Start 03/09/19 at 09:00 Hydroxyurea (Hydrea) 500 mg BID PO Last administered on 03/12/19at 09:52; Admin Dose 500 MG; Start 03/08/19 at 22:00 Hydroxyzine HCl (Atarax) 50 mg Q6H PRN PO ITCHING......; Start 03/09/19 at 13:00 Ondansetron HCl (Zofran Inj) 4 mg Q4H PRN IV NAUSEA AND/OR VOMITING Last administered on 03/12/19 13:53; Admin Dose 4 MG; Start 03/09/19 at 18:30 Hydromorphone HCl (Dilaudid) 4 mg Q4H PRN IV .SEVERE PAIN 7-10 Last administered on 03/12/19 13:53; Admin Dose 4 MG; Start 03/10/19 at 17:00 Oxycodone HCl (Roxicodone) 30 mg BID PRN PO PAIN; Start 03/10/19 at 14:00 Acetaminophen (Tylenol Tab) 650 mg Q6H PRN PO headache Last administered on 03/11/19 21:42; Admin Dose 650 MG; Start 03/10/19 at 14:00 JENNY CHA Mar 12, 2019 16:57
[2019-03-12] MEDS ORDERED: GUAIFENESIN 20 MG/ML 5ML CUP PO PRN (17:30)
--- NOTE | 2019-03-12 18:23 | PN ---
Date/Time of Note Date/Time of Note DATE: 03/12/19 TIME: 17:10 Assessment/Plan VTE Prophylaxis Risk score (from Ns)>0 risk: 1 SCD applied (from Ns): Yes Pharmacological prophylaxis: NA/contraindicated Pharm contraindication: other (anemia) Lines/Catheters IV Catheter Type (from [facility]): Peripheral IV Urinary Cath still in place: No Assessment/Plan Hospital Course Assessment/Plan 1. Sickle cell disease with Pain crisis -analesics prn - o2 prn - diphenhydramine prn for pruritis 2. Anemia - [employer] following - transfuse prbc as needed. Dispo/Plan: Continue with analgesics. f/u H&H. d/c planning. anticipate d/c once H&H stable, and cleared by consults. Discussed plan of care with Dr. Ta Result Diagram: 03/12/1918 03/12/1918 Results 24hrs Laboratory Tests Test 03/12/19 05:18 White Blood Count 9.8 # Red Blood Count 3.10 #L Hemoglobin 10.1 #L Hematocrit 28.0 #L Mean Corpuscular Volume 90.3 Mean Corpuscular Hemoglobin 32.6 Mean Corpuscular Hemoglobin Concent 36.1 Red Cell Distribution Width 20.7 H Platelet Count 219 # Mean Platelet Volume 12.1 H Immature Granulocytes % 2.200 H Neutrophils % 68.1 Lymphocytes % 23.5 Monocytes % 5.3 Eosinophils % 0.5 Basophils % 0.4 Nucleated Red Blood Cells % 54.9 H Immature Granulocytes # 0.220 H Neutrophils # 6.7 Lymphocytes # 2.3 Monocytes # 0.5 Eosinophils # 0.1 Basophils # 0.0 Nucleated Red Blood Cells # 5.4 H Sodium Level 140 Potassium Level 4.5 Chloride Level 102 Carbon Dioxide Level 34 H Anion Gap 4 L Blood Urea Nitrogen 6 L Creatinine 0.47 Est Glomerular Filtrat Rate mL/min > 60 Glucose Level 88 Calcium Level 9.0 Total Bilirubin 3.3 H Direct Bilirubin 0.00 Indirect Bilirubin 3.3 H Aspartate Amino Transf (AST/SGOT) 131 H Alanine Aminotransferase (ALT/SGPT) 71 H Alkaline Phosphatase 107 Total Protein 7.7 Albumin 4.2 Globulin 3.50 H Albumin/Globulin Ratio 1.20 Subjective 24 Hr Interval Summary Free Text/Dictation no s/s of distress. denies any pain at this time Exam/Review of Systems Exam Vitals Vital Signs Date Temp Pulse Resp B/P (MAP) Pulse Ox O2 O2 Flow FiO2 Time Delivery Rate 03/12/19 97.9 93 19 109/59 93 Nasal 14:00 (76) Cannula 03/11/19 2.0 14:00 03/08/19 21 17:35 Intake and Output 03/11/19 03/11/19 03/12/19 1515:00 23:00 07:00 IntakeIntake Total 1766 ml 700 ml BalanceBalance 1766 ml 700 ml Constitutional: alert, oriented Psych: nl mood/affect Head: normocephalic Neck: supple, non-tender Respiratory: clear to auscultation Cardiovascular: regular rate and rhythm Gastrointestinal: soft, non-tender Musculoskeletal: nl extremities to inspection Skin: nl turgor Results Results 24hrs Laboratory Tests Test 03/12/19 05:18 White Blood Count 9.8 # Red Blood Count 3.10 #L Hemoglobin 10.1 #L Hematocrit 28.0 #L Mean Corpuscular Volume 90.3 Mean Corpuscular Hemoglobin 32.6 Mean Corpuscular Hemoglobin Concent 36.1 Red Cell Distribution Width 20.7 H Platelet Count 219 # Mean Platelet Volume 12.1 H Immature Granulocytes % 2.200 H Neutrophils % 68.1 Lymphocytes % 23.5 Monocytes % 5.3 Eosinophils % 0.5 Basophils % 0.4 Nucleated Red Blood Cells % 54.9 H Immature Granulocytes # 0.220 H Neutrophils # 6.7 Lymphocytes # 2.3 Monocytes # 0.5 Eosinophils # 0.1 Basophils # 0.0 Nucleated Red Blood Cells # 5.4 H Sodium Level 140 Potassium Level 4.5 Chloride Level 102 Carbon Dioxide Level 34 H Anion Gap 4 L Blood Urea Nitrogen 6 L Creatinine 0.47 Est Glomerular Filtrat Rate mL/min > 60 Glucose Level 88 Calcium Level 9.0 Total Bilirubin 3.3 H Direct Bilirubin 0.00 Indirect Bilirubin 3.3 H Aspartate Amino Transf (AST/SGOT) 131 H Alanine Aminotransferase (ALT/SGPT) 71 H Alkaline Phosphatase 107 Total Protein 7.7 Albumin 4.2 Globulin 3.50 H Albumin/Globulin Ratio 1.20 Medications Medication Current Medications IV Flush (NS 3 ml) 3 ml PER PROTOCOL IV ; Start 03/08/19 at 19:30 Diphenhydramine HCl (Benadryl) 50 mg Q4H PRN IV itching--> IF CAN'T TAKE PO... Last administered on 03/12/19 13:53; Admin Dose 50 MG; Start 03/08/19 at 19:30 Folic Acid (Folic Acid) 1 mg DAILY PO Last administered on 03/12/19 09:51; Admin Dose 1 MG; Start 03/09/19 at 09:00 Hydroxyurea (Hydrea) 500 mg BID PO Last administered on 03/12/19 09:52; Admin Dose 500 MG; Start 03/08/19 at 22:00 Hydroxyzine HCl (Atarax) 50 mg Q6H PRN PO ITCHING......; Start 03/09/19 at 13:00 Ondansetron HCl (Zofran Inj) 4 mg Q4H PRN IV NAUSEA AND/OR VOMITING Last a dministered on 03/12/19 13:53; Admin Dose 4 MG; Start 03/09/19 at 18:30 Hydromorphone HCl (Dilaudid) 4 mg Q4H PRN IV .SEVERE PAIN 7-10 Last administered on 03/12/19 13:53; Admin Dose 4 MG; Start 03/10/19 at 17:00 Oxycodone HCl (Roxicodone) 30 mg BID PRN PO PAIN; Start 03/10/19 at 14:00 Acetaminophen (Tylenol Tab) 650 mg Q6H PRN PO headache Last administered on 03/11/19 21:42; Admin Dose 650 MG; Start 03/10/19 at 14:00 BARBARA DELGADO NP Mar 12, 2019 17:20
[2019-03-12 20:00] VITALS: BP 109/53; PULSE 90; RESP 17
[2019-03-13 02:00] VITALS: BP 109/57; PULSE 97; RESP 18
[2019-03-13] MEDS: HYDROmorphONE 2 MG/ML SYG IV PRN ×2 (02:32→07:44)
[2019-03-13] MEDS: ONDANSETRON 4 MG INJ IV PRN ×2 (02:33→07:30)
[2019-03-13] MEDS: DIPHENHYDRAMINE 50 MG INJ IV PRN ×2 (02:37→07:34)
[2019-03-13 08:15] VITALS: BP 108/60; PULSE 90; RESP 16
--- NOTE | 2019-03-13 08:26 | CONS ---
Assessment/Plan Assessment/Plan Assessment/Plan (Daily) # Sickle Cell Pain Crisis. Hgb 10.1 today - pain control - IVF # Iron overload - SP 1 units or PRBC transfusion yesterday. - continue Jadenu 500 mg q day that she is taking as an out patient - pt will need out patient follow up at a tertiary care center so she can receive regular out patient RBC exchange transfusions. - Case management consult placed for patient to be followed up at [facility] with Dr. Ana Maria Alfonso Patient seen in collaboration with Dr Martinez Consultation Date/Type/Reason Admit Date/Time March 10, 2019 at 04:55 Initial Consult Date 03/11/19 Requesting Provider: RIKY WOODS MD Date/Time of Note DATE: 03/13/19 TIME: 08:25 24 HR Interval Summary Free Text/Dictation resting; seems comfortable Hgb 10.1 today no events reported last night dw staff Constitutional: requiring O2 Detailed Summary Eyes: no complaints ENT: no complaints Respiratory: no complaints Cardiovascular: no complaints Gastrointestinal: no complaints Genitourinary: no complaints Musculoskeletal: no complaints Skin: no complaints Neurologic: no complaints Endocrine: no complaints Psychological: nl mood/affect Immunologic: no complaints Exam/Review of Systems Exam Vitals Vital Signs Date Temp Pulse Resp B/P (MAP) Pulse Ox O2 O2 Flow FiO2 Time Delivery Rate 03/13/19 99.2 90 16 108/60 97 Nasal 2.0 08:15 (76) Cannula Intake and Output 03/12/19 03/12/19 03/13/19 1515:00 23:00 07:00 IntakeIntake Total 900 ml BalanceBalance 900 ml Constitutional: alert, well developed Psych: nl mood/affect Head: normocephalic Eyes: nl lids, nl sclera ENMT: nl external ears & nose Neck: non-tender Respiratory: clear to auscultation Cardiovascular: nl pulses Gastrointestinal: soft, non-tender Musculoskeletal: nl extremities to inspection Extremities: normal pulses Neurological: nl mental status, nl speech Lymph: nontender Results Result Diagram: 03/13/19 0604 03/13/19 0604 Results 24hrs Laboratory Tests Test 03/13/19 06:04 03/13/19 06:57 White Blood Count 9.9 Red Blood Count 3.02 L Hemoglobin 10.1 L Hematocrit 27.5 L Mean Corpuscular Volume 91.1 Mean Corpuscular Hemoglobin 33.4 H Mean Corpuscular Hemoglobin Concent 36.7 Red Cell Distribution Width 22.2 H Platelet Count 215 Mean Platelet Volume 11.7 H Immature Granulocytes % 1.100 H Neutrophils % 60.0 Lymphocytes % 31.7 Monocytes % 6.1 Eosinophils % 0.7 Basophils % 0.4 Nucleated Red Blood Cells % 59.1 H Immature Granulocytes # 0.110 H Neutrophils # 5.9 Lymphocytes # 3.1 H Monocytes # 0.6 Eosinophils # 0.1 Basophils # 0.0 Nucleated Red Blood Cells # 5.8 H Sodium Level 141 Potassium Level 3.9 Chloride Level 102 Carbon Dioxide Level 31 Anion Gap 8 Blood Urea Nitrogen 7 Creatinine 0.41 L Est Glomerular Filtrat Rate mL/min > 60 Glucose Level 83 Calcium Level 9.4 Phosphorus Level 5.1 H Magnesium Level 1.7 Total Bilirubin 3.2 H Direct Bilirubin 0.00 Indirect Bilirubin 3.2 H Aspartate Amino Transf (AST/SGOT) 116 H Alanine Aminotransferase (ALT/SGPT) 66 Alkaline Phosphatase 103 Total Protein 7.9 Albumin 4.2 Globulin 3.70 H Albumin/Globulin Ratio 1.13 Lab Scanned Report BLOOD TRANSFUSION Medications Medication Current Medications IV Flush (NS 3 ml) 3 ml PER PROTOCOL IV ; Start 03/08/19 at 19:30 Diphenhydramine HCl (Benadryl) 50 mg Q4H PRN IV itching--> IF CAN'T TAKE PO... Last administered on 03/13/19 07:34; Admin Dose 50 MG; Start 03/08/19 at 19:30 Folic Acid (Folic Acid) 1 mg DAILY PO Last administered on 03/12/19at 09:51; Admin Dose 1 MG; Start 03/09/19 at 09:00 Hydroxyurea (Hydrea) 500 mg BID PO Last administered on 03/12/19 22:28; Admin Dose 500 MG; Start 03/08/19 at 22:00 Hydroxyzine HCl (Atarax) 50 mg Q6H PRN PO ITCHING......; Start 03/09/19 at 13:00 Ondansetron HCl (Zofran Inj) 4 mg Q4H PRN IV NAUSEA AND/OR VOMITING Last administered on 03/13/19 07:30; Admin Dose 4 MG; Start 03/09/19 at 18:30 Hydromorphone HCl (Dilaudid) 4 mg Q4H PRN IV .SEVERE PAIN 7-10 Last administered on 03/13/19at 07:44; Admin Dose 4 MG; Start 03/10/19 at 17:00 Oxycodone HCl (Roxicodone) 30 mg BID PRN PO PAIN; Start 03/10/19 at 14:00 Acetaminophen (Tylenol Tab) 650 mg Q6H PRN PO headache Last administered on 03/11/19at 21:42; Admin Dose 650 MG; Start 03/10/19 at 14:00 Guaifenesin (Robitussin Liquid Cup) 200 mg Q4H PRN PO cough; Start 03/12/19 at 17:30 JENNY CHA Mar 13, 2019 08:26
[2019-03-13] MEDS: FOLIC ACID 1 MG TAB PO SCH (08:49)
[2019-03-13] MEDS: HYDROXYUREA 500 MG CAP PO SCH (08:49)
--- NOTE | 2019-03-13 10:52 | PN ---
Date/Time of Note Date/Time of Note DATE: 03/13/19 TIME: 10:48 Assessment/Plan VTE Prophylaxis Risk score (from Ns)>0 risk: 1 SCD applied (from Ns): Yes Pharmacological prophylaxis: NA/contraindicated Pharm contraindication: other (anemia) Lines/Catheters IV [facility]ter [facility] (from [facility] Peripheral IV Urinary Cath still in place: No Assessment/Plan Hospital Course Assessment/Plan 1. Sickle cell disease with Pain crisis - improving -analesics prn - o2 prn - diphenhydramine prn for pruritis 2. Anemia - [employer] following - transfuse prbc as needed. Dispo/Plan: Continue with analgesics. monitor H&H. Awaiting outpatient f/u set up with [facility] [place]. f/u case management. d/c planning in progress Discussed plan of care with Dr. Ta Result Diagram: 03/13/19 0604 03/13/19 0604 Results 24hrs Laboratory Tests Test 03/13/19 06:04 03/13/19 06:57 White Blood Count 9.9 Red Blood Count 3.02 L Hemoglobin 10.1 L Hematocrit 27.5 L Mean Corpuscular Volume 91.1 Mean Corpuscular Hemoglobin 33.4 H Mean Corpuscular Hemoglobin Concent 36.7 Red Cell Distribution Width 22.2 H Platelet Count 215 Mean Platelet Volume 11.7 H Immature Granulocytes % 1.100 H Neutrophils % 60.0 Lymphocytes % 31.7 Monocytes % 6.1 Eosinophils % 0.7 Basophils % 0.4 Nucleated Red Blood Cells % 59.1 H Immature Granulocytes # 0.110 H Neutrophils # 5.9 Lymphocytes # 3.1 H Monocytes # 0.6 Eosinophils # 0.1 Basophils # 0.0 Nucleated Red Blood Cells # 5.8 H Sodium Level 141 Potassium Level 3.9 Chloride Level 102 Carbon Dioxide Level 31 Anion Gap 8 Blood Urea Nitrogen 7 Creatinine 0.41 L Est Glomerular Filtrat Rate mL/min > 60 Glucose Level 83 Calcium Level 9.4 Phosphorus Level 5.1 H Magnesium Level 1.7 Total Bilirubin 3.2 H Direct Bilirubin 0.00 Indirect Bilirubin 3.2 H Aspartate Amino Transf (AST/SGOT) 116 H Alanine Aminotransferase (ALT/SGPT) 66 Alkaline Phosphatase 103 Total Protein 7.9 Albumin 4.2 Globulin 3.70 H Albumin/Globulin Ratio 1.13 Lab Scanned Report BLOOD TRANSFUSION Subjective 24 Hr Interval Summary Free Text/Dictation denies any pain at this time. still has little cough Exam/Review of Systems Exam Vitals Vital Signs Date Temp Pulse Resp B/P (MAP) Pulse Ox O2 O2 Flow FiO2 Time Delivery Rate 03/13/19 99.2 90 16 108/60 97 Nasal 2.0 08:15 (76) Cannula Intake and Output 03/12/19 03/12/19 03/13/19 1515:00 23:00 07:00 IntakeIntake Total 900 ml BalanceBalance 900 ml Exam Constitutional: alert, oriented Psych: nl mood/affect Head: normocephalic Neck: supple, non-tender Respiratory: clear to auscultation Cardiovascular: regular rate and rhythm Gastrointestinal: soft, non-tender Musculoskeletal: nl extremities to inspection Skin: nl turgor Results Results 24hrs Laboratory Tests Test 03/13/19 06:04 03/13/19 06:57 White Blood Count 9.9 Red Blood Count 3.02 L Hemoglobin 10.1 L Hematocrit 27.5 L Mean Corpuscular Volume 91.1 Mean Corpuscular Hemoglobin 33.4 H Mean Corpuscular Hemoglobin Concent 36.7 Red Cell Distribution Width 22.2 H Platelet Count 215 Mean Platelet Volume 11.7 H Immature Granulocytes % 1.100 H Neutrophils % 60.0 Lymphocytes % 31.7 Monocytes % 6.1 Eosinophils % 0.7 Basophils % 0.4 Nucleated Red Blood Cells % 59.1 H Immature Granulocytes # 0.110 H Neutrophils # 5.9 Lymphocytes # 3.1 H Monocytes # 0.6 Eosinophils # 0.1 Basophils # 0.0 Nucleated Red Blood Cells # 5.8 H Sodium Level 141 Potassium Level 3.9 Chloride Level 102 Carbon Dioxide Level 31 Anion Gap 8 Blood Urea Nitrogen 7 Creatinine 0.41 L Est Glomerular Filtrat Rate mL/min > 60 Glucose Level 83 Calcium Level 9.4 Phosphorus Level 5.1 H Magnesium Level 1.7 Total Bilirubin 3.2 H Direct Bilirubin 0.00 Indirect Bilirubin 3.2 H Aspartate Amino Transf (AST/SGOT) 116 H Alanine Aminotransferase (ALT/SGPT) 66 Alkaline Phosphatase 103 Total Protein 7.9 Albumin 4.2 Globulin 3.70 H Albumin/Globulin Ratio 1.13 Lab Scanned Report BLOOD TRANSFUSION Medications Medication Current Medications IV Flush (NS 3 ml) 3 ml PER PROTOCOL IV ; Start 03/08/19 at 19:30 Diphenhydramine HCl (Benadryl) 50 mg Q4H PRN IV itching--> IF CAN'T TAKE PO... Last administered on 03/13/19 07:34; Admin Dose 50 MG; Start 03/08/19 at 19:30 Folic Acid (Folic Acid) 1 mg DAILY PO Last administered on 03/13/19 08:49; Admin Dose 1 MG; Start 03/09/19 at 09:00 Hydroxyurea (Hydrea) 500 mg BID PO Last administered on 03/13/19 08:49; Admin Dose 500 MG; Start 03/08/19 at 22:00 Hydroxyzine HCl (Atarax) 50 mg Q6H PRN PO ITCHING......; Start 03/09/19 at 13:00 Ondansetron HCl (Zofran Inj) 4 mg Q4H PRN IV NAUSEA AND/OR VOMITING Last administered on 03/13/19 07:30; Admin Dose 4 MG; Start 03/09/19 at 18:30 Hydromorphone HCl (Dilaudid) 4 mg Q4H PRN IV .SEVERE PAIN 7-10 Last administered on 03/13/19 07:44; Admin Dose 4 MG; Start 03/10/19 at 17:00 Oxycodone HCl (Roxicodone) 30 mg BID PRN PO PAIN; Start 03/10/19 at 14:00 Acetaminophen (Tylenol Tab) 650 mg Q6H PRN PO headache Last administered on 03/11/19 21:42; Admin Dose 650 MG; Start 03/10/19 at 14:00 Guaifenesin (Robitussin Liquid Cup) 200 mg Q4H PRN PO cough; Start 03/12/19 at 17:30 BARBARA DELGADO NP Mar 13, 2019 10:52
[2019-03-13] MEDS ORDERED: GUAIFENESIN/CODEINE 5ML CUP PO PRN (11:00)
[2019-03-13] MEDS ORDERED: HYDR500C3 PO (11:48)
[2019-03-13] MEDS ORDERED: FOLI-49 PO (11:48)
--- NOTE | 2019-03-13 11:50 | PDOCDIS ---
Discharge Instructions DIAGNOSIS Discharge Diagnosis 1. Sickle cell disease with Pain crisis 2. Anemia CONDITION [id number] Patient Condition: [id number] Stable HOME CARE INSTRUCTIONS: [id number] Diet Instructions: [id number] Regular FOLLOW UP/APPOINTMENTS Follow-up Plan 1. Follow up at [facility] with Dr. Ana Maria Alfonso for further care and management of your sickle cell disease 2. Take your medications as prescribed BARBARA DELGADO NP Mar 13, 2019 11:50
[2019-03-13] MEDS ORDERED: DEFE360T PO (11:51)
[2019-03-13] MEDS ORDERED: OXYC15TA PO (12:29)
--- NOTE | 2019-03-13 15:17 | DS ---
Date/Time of Note Date/Time of Note DATE: 03/13/19 TIME: 15:13 Discharge Summary Admission/Discharge Info Admit Date/Time March 10, 2019 at 04:55 Discharge Date/Time Mar 13, 2019 at 13:09 Discharge Diagnosis 1. Sickle cell disease with Pain crisis 2. Anemia Patient Condition: Stable Cons[facility] Course This is a 23-year-old female with history of sickle cell disease who was in her normal state of health who stated she came to [place] and moved here recently and started to develop severe back aching global headache prior to admission. She states she believes she was dehydrated. She took her home oxycodone with no improvement. She denied any vision change or chest pain. Of note, Her table worker is Dr. Mary Alice Lind in [place]. Due to the aformentiond issues she was brought to the hospital for further evaluation. She was found to have sickle cell disease with pain crisis. She was placed on IV hydration and she was seen by table worker in house. She was resumed on hydroxyurea as well as folic acid. She was provided with appropriate analgesic medication as well. She does take Jadenu as outpatient and was advised to resume when she does get discharged from the hospital. Case management was involved and we did set her up to follow-up at [facility] with specialist Dr. Ana Maria Alfonso for further management and care. During the course of stay she did improve. She was advised to follow-up with outpatient specialist and to take her medications as prescribed. The plan of care was discussed with the patient and patient verbalized understanding. On the day of discharge patient was in stable condition Discussed plan of care with Dr. Ta [facility] Active Scripts Oxycodone Hcl* (IR) (Oxycodone Hcl*) 15 Mg Tablet, 15 MG PO BID PRN for PAIN, #14 TAB Prov:BARBARA DELGADO FISCAL MANAGER 03/13/19 Deferasirox (Jadenu) 360 Mg Tablet, 360 MG PO DAILY, #30 TAB Prov:REGIDOBARBARA Trejo FISCAL MANAGER 03/13/19 Folic Acid* (Folic Acid*) 1 Mg Tablet, 1 MG PO DAILY, #30 TAB Prov:BARBARA DELGADO FISCAL MANAGER 03/13/19 Hydroxyurea* (Hydroxyurea*) 500 Mg Capsule, 500 MG PO BID, #60 CAP Prov:BARBARA DELGADO FISCAL MANAGER 03/13/19 Follow-up Plan 1. Follow up at [facility] with Dr. Ana Maria Alfonso for further care and management of your sickle cell disease 2. Take your medications as prescribed Primary Care Provider Care Physician No Primary Time spent on discharge: > 30 minutes Pending Labs Laboratory Tests Test 03/13/19 06:04 03/13/19 06:57 White Blood Count 9.9 10^3/ul (4.8-10.8) Red Blood Count 3.02 10^6/ul (4.20-5.40) Hemoglobin 10.1 g/dl (12.0-16.0) Hematocrit 27.5 % (37.0-47.0) Mean Corpuscular Volume 91.1 fl (82.0-101.0) Mean Corpuscular Hemoglobin 33.4 pg (29.0-33.0) Mean Corpuscular 36.7 g/dl (32.0-37.0) Hemoglobin Concent Red Cell Distribution Width 22.2 % (11.5-14.5) Platelet Count 215 10^3/UL (140-415) Mean Platelet Volume 11.7 fl (7.4-10.4) Immature Granulocytes % 1.100 % (0.001-0.429) Neutrophils % 60.0 % (39.0-77.0) Lymphocytes % 31.7 % (15.0-51.0) Monocytes % 6.1 % (0.0-11.0) Eosinophils % 0.7 % (0.0-7.0) Basophils % 0.4 % (0.0-2.0) Nucleated Red Blood Cells % 59.1 /100WBC (0.0-0.0) Immature Granulocytes # 0.110 10^3/ul (0.0-0.031) Neutrophils # 5.9 10^3/ul (1.6-7.5) Lymphocytes # 3.1 10^3/ul (0.8-2.9) Monocytes # 0.6 10^3/ul (0.3-0.9) Eosinophils # 0.1 10^3/ul (0.0-0.5) Basophils # 0.0 10^3/ul (0.0-0.1) Nucleated Red Blood Cells # 5.8 10^3/ul (0.0-0.0) Sodium Level 141 mmol/L (135-144) Potassium Level 3.9 mmol/L (3.5-5.1) Chloride Level 102 mmol/L (97-110) Carbon Dioxide Level 31 mmol/L (21-31) Anion Gap 8 (5-13) Blood Urea Nitrogen 7 mg/dl (7-20) Creatinine 0.41 mg/dl (0.44-1.00) Est Glomerular Filtrat Rate mL/min > 60 mL/min (>60) Glucose Level 83 mg/dl (70-220) Calcium Level 9.4 mg/dl (8.4-10.2) Phosphorus Level 5.1 mg/dl (2.5-4.9) Magnesium Level 1.7 mg/dl (1.7-2.5) Total Bilirubin 3.2 mg/dl (0.2-1.3) Direct Bilirubin 0.00 mg/dl (0.00-0.20) Indirect Bilirubin 3.2 mg/dl (0-1.1) Aspartate Amino Transf (AST/SGOT) 116 IU/L (15-46) Alanine 66 IU/L (13-69) Aminotransferase (ALT/SGPT) Alkaline Phosphatase 103 IU/L (42-121) Total Protein 7.9 g/dl (6.1-8.1) Albumin 4.2 g/dl (3.3-4.9) Globulin 3.70 g/dl (1.3-3.2) Albumin/Globulin Ratio 1.13 Lab Scanned Report BLOOD TRANSFUSION BARBARA DELGADO NP Mar 13, 2019 15:17
== END 2019-03-13 13:09 | disposition home or self-care (01) | DRG 812 ==
LOC: E/R 14:40 → PP2 19:09 → OBSVTOIN 03-10 04:55
PROVIDERS: ADMIT Internal Medicine; ATTEND Internal Medicine
PROC: 30283B1 Transfusion of Nonautologous 4-Factor Prothrombin Complex Concentrate into Vein, Percutaneous Approach (ICD-10-PCS; principal; 2019-03-11)
DX: D57.00 Hb-SS disease with crisis, unspecified (principal); E83.119 Hemochromatosis, unspecified
CPT/HCPCS: 36415; 36430; 71045; 80053; 81025; 82728; 83036; 83690; 83735; 84100; 84443; 84702; 85025; 85045; 86850; 86900; 86901; 86920; 87081; 94664; 96374; 96375; G0378; J1170; J1200; J2405; J3475; J7030; P9011

== ENCOUNTER 2019-04-11 23:39 | Inpatient (IN) | payer MEDICAID, OTHER ==
[~2019-04-11] VITALS: Ht 154.9 cm; Wt 48.7 kg
[~2019-04-11 23:39] MED LIST: DEFE360T PO; FOLI-49 PO; HYDR500C3 PO; OXYC15TA PO
[2019-04-12] MEDS ORDERED: SOD CHLORIDE 0.9% 1,000 ML IV STA (00:17)
[2019-04-12] MEDS ORDERED: morphine 4 MG/ML VIAL IV STA (00:17)
[2019-04-12] MEDS ORDERED: DIPHENHYDRAMINE 50 MG INJ IV ONE ×5 (00:30→22:00)
[2019-04-12] MEDS ORDERED: HYDROmorphONE 2 MG/ML SYG IV STA (01:55)
[2019-04-12 02:00] VITALS: BP 111/60; PULSE 92; RESP 16
[2019-04-12] MEDS ORDERED: ONDANSETRON 4 MG INJ IV PRN ×2 (03:00→06:30)
[2019-04-12] MEDS ORDERED: ACETAMINOPHEN 325 MG TAB PO PRN ×2 (03:00→06:30)
--- NOTE | 2019-04-12 03:04 | ERD ---
ER Documentation Chief Complaint Chief Complaint BIB MOTHER W/ C/O UPPER AND MEDIAL BACK PAIN TODAY HPI 23-year-old female with a history of sickle cell disease presenting with complaints of middle upper back pain that started today that she describes as aching, with some associated pain in the middle of her chest. Her symptoms are not worse with deep inspiration. She has no associated shortness of breath, cough, or hemoptysis. No fevers or chills. She is complaining of severe pain, 10 out of 10 without any alleviating or exacerbating factors. ROS All systems reviewed and are negative except as per history of present illness. Medications Home Meds Active Scripts Oxycodone Hcl* (IR) (Oxycodone Hcl*) 15 Mg Tablet, 15 MG PO BID PRN for PAIN, #14 TAB Prov:BARBARA DELGADO PERSONAL SERVICE REPRESENTATIVE 03/13/19 Deferasirox (Jadenu) 360 Mg Tablet, 360 MG PO DAILY, #30 TAB Prov:BARBARA DELGADO PERSONAL SERVICE REPRESENTATIVE 03/13/19 Folic Acid* (Folic Acid*) 1 Mg Tablet, 1 MG PO DAILY, #30 TAB Prov:BARBARA DELGADO PERSONAL SERVICE REPRESENTATIVE 03/13/19 Hydroxyurea* (Hydroxyurea*) 500 Mg Capsule, 500 MG PO BID, #60 CAP Prov:BARBARA DELGADO PERSONAL SERVICE REPRESENTATIVE 03/13/19 Allergies Allergies: Coded Allergies: ibuprofen (Verified Allergy, Unknown, 03/09/19) PMhx/Soc History of Surgery: Yes (cholecystectomy (2006), right knee sx (2006)) Anesthesia Reaction: No Hx Neurological Disorder: No Hx Respiratory Disorders: No Hx Cardiac Disorders: Yes ("Mass on heart") Hx Psychiatric Problems: No Hx Miscellaneous Medical Probl: Yes (Sickle cell disease) Hx Alcohol Use: No Hx Substance Use: Yes (daily marijuana) Hx Tobacco Use: No Smoking Status: Never smoker FmHx Family History: No diabetes Physical Exam Vitals Vital Signs Date Temp Pulse Resp B/P (MAP) Pulse Ox O2 O2 Flow FiO2 Time Delivery Rate 04/12/19 81 20 91/89 (90) 96 Room Air 01:46 04/12/19 Nasal 2 00:26 Cannula 04/11/19 99.1 99 20 108/57 92 23:43 (74) Physical Exam Const: No acute distress Head: Atraumatic Eyes: Normal Conjunctiva ENT: Normal External Ears, Nose and Mouth. Neck: Full range of motion. No meningismus. Resp: Clear to auscultation bilaterally Cardio: No tachypnea. Poor respiratory effort. Regular rate and rhythm, no murmurs. 2+ distal pulses equal in all 4 extremities Abd: Soft, non tender, non distended. Normal bowel sounds Skin: No petechiae or rashes Back: Diffuse thoracic paraspinal muscle tenderness to palpation Ext: No cyanosis, or edema Neur: Awake and alert, normal speech, moving all extremities, strength grossly intact Psych: Normal Mood and Affect Result Diagram: 04/12/193204/12/1932 Results 24 hrs Laboratory Tests Test 04/12/19 00:33 04/12/19 00:42 White Blood Count 14.9 10^3/ul Red Blood Count 2.42 10^6/ul Hemoglobin 8.0 g/dl Hematocrit 22.2 % Mean Corpuscular Volume 91.7 fl Mean Corpuscular Hemoglobin 33.1 pg Mean Corpuscular Hemoglobin Concent 36.0 g/dl Red Cell Distribution Width 21.3 % Platelet Count 206 10^3/UL Mean Platelet Volume 11.5 fl Immature Granulocytes % 1.400 % Neutrophils % % Segmented Neutrophils % (Manual) 41 % Band Neutrophils % (Manual) 1 % Lymphocytes % % Lymphocytes % (Manual) 50 % Reactive Lymphocytes % (Manual) 2 % Monocytes % % Monocytes % (Manual) 4 % Eosinophils % % Eosinophils % (Manual) 1 % Basophils % % Myelocytes % (Manual) 1 % Nucleated Red Blood Cells % 9 % Immature Granulocytes # 0.210 10^3/ul Neutrophils # 10^3/ul Neutrophils # (Manual) 6.1 10^3/ul Band Neutrophils # 0.1 10^3/ul Lymphocytes (Manual) 7.4 10^3/ul Lymphocytes # 10^3/ul Reactive Lymphocytes # 0.2 10^3/ul Monocytes # 10^3/ul Monocytes # (Manual) 0.5 10^3/ul Eosinophils # 10^3/ul Basophils # 10^3/ul Myelocytes # 0.1 10^3/ul Nucleated Red Blood Cells # 10^3/ul Platelet Estimate NORMAL Giant Platelets 5 % Polychromasia 3+ Poikilocytosis 2+ Anisocytosis 2+ Macrocytosis 2+ Sickle Cells 1+ Target Cells 1+ Absolute Reticulocyte Count 0.670 X10^6 Percent Reticulocyte Count 27.7 % Sodium Level 141 mmol/L Potassium Level 4.6 mmol/L Chloride Level 105 mmol/L Carbon Dioxide Level 28 mmol/L Anion Gap 8 Blood Urea Nitrogen 10 mg/dl Creatinine 0.79 mg/dl Est Glomerular Filtrat Rate mL/min > 60 mL/min Glucose Level 89 mg/dl Calcium Level 9.7 mg/dl Total Bilirubin 2.6 mg/dl Direct Bilirubin 0.00 mg/dl Indirect Bilirubin 2.6 mg/dl Aspartate Amino Transf (AST/SGOT) 116 IU/L Alanine Aminotransferase (ALT/SGPT) 84 IU/L Alkaline Phosphatase 137 IU/L Troponin I < 0.012 ng/ml Total Protein 8.6 g/dl Albumin 4.5 g/dl Globulin 4.10 g/dl Albumin/Globulin Ratio 1.09 Bedside Urine pH (LAB) 7.0 Bedside Urine Protein (LAB) Negative Bedside Urine Glucose (UA) Negative Bedside Urine Ketones (LAB) Negative Bedside Urine Blood Trace-intact Bedside Urine Nitrite (LAB) Negative Bedside Urine Leukocyte Esterase (L Negative POC Beta HCG, Qualitative NEGATIVE Current Medications Medications Dose Sig/Edyta Start Time Status Last (Trade) Ordered Route PRN Stop Time Admin Dose Reason Admin Sodium 1,000 ml @ Q1H STAT 04/12/19 DC 04/12/19 Chloride 1,000 mls/hr IV 00:17 04/12/19 00:50 01:16 Morphine 4 mg ONCE STAT 04/12/19 DC 04/12/19 Sulfate IV 00:17 04/12/19 00:50 (morphine) 00:19 25 mg ONCE ONCE 04/12/19 DC 04/12/19 Diphenhydrami IV 00:30 04/12/19 00:51 ne HCl 00:31 (Benadryl) 1 mg ONCE STAT 04/12/19 DC 04/12/19 Hydromorphone IV 01:55 04/12/19 02:08 HCl 01:56 (Dilaudid) 25 mg ONCE ONCE 04/12/19 04/12/19 Diphenhydrami IV 03:00 04/12/19 02:44 ne HCl 03:01 (Benadryl) Ondansetron 4 mg ER BRIDGE 04/12/19 HCl (Zofran PRN IV 03:00 04/13/19 Inj) NAUSEA/VOMITI 02:59 NG 650 mg ER BRIDGE 04/12/19 Acetaminophen PRN PO 03:00 04/13/19 (Tylenol .MILD PAIN 02:59 Tab) 1-3 OR TEMP Procedures/MDM EMERGENT LABS AND DIAGNOSTIC STUDIES: Lab Results above were reviewed and interpreted by me. CBC: Leukocytosis, unclear etiology. Anemia, chronic. At patient baseline. CMP: Elevated bilirubin, consistent with hemolysis. No evidence of clinically significant electrolyte abnormality, acidosis, renal failure, hypoglycemia, liver disease, or biliary obstruction Lipase: no evidence of pancreatitis Troponin within normal limits, not indicative of cardiac ischemia negative 12-lead EKG was interpreted by Anu Matthew MD: Normal Sinus Rhythm with ventricular rate of 81 beats per minute Normal axis Normal intervals . Inferior Q waves No acute ST or T wave changes suggestive of acute ischemia or STEMI. Radiology Results as interpreted by Radiology below were reviewed by Rocio Matthew MD: Chest x-ray shows no acute abnormalities Initial Nursing notes reviewed. Previous Medical Records requested via the Electronic Health Record. EMERGENCY DEPARTMENT COURSE / MEDICAL DECISION MAKING: Patient is presenting with back and chest pain, likely secondary to sickle cell pain crisis. Vitals were notable for mild hypoxia on room air. However I suspect this is secondary to the patient's shallow respirations noted on exam. I did consider acute coronary syndrome, acute chest syndrome, pulmonary embolism, aortic dissection, pneumonia among other etiologies. However EKG was normal. Troponin was within normal limits. Chest x-ray did not show any acute abnormalities. Low suspicion for pulmonary embolism or dissection at this time. Doubt sepsis. Patient treated with multiple doses of IV pain medications and with IV fluids. She will require admission for pain control and further monitoring. Accepting Care Team: Current data and ongoing care discussed. Time: Time of admission Primary Provider: Dr. Krueger Departure Diagnosis: Primary Impression: Sickle cell pain crisis ERNA MATTHEW MD Apr 12, 2019 03:04
--- NOTE | 2019-04-12 06:13 | HP ---
Date/Time of Note Date/Time of Note DATE: 04/12/19 TIME: 06:11 Assessment/Plan VTE Prophylaxis SCD applied (from Nsg): Yes Pharmacological prophylaxis: NA/contraindicated Pharm contraindication: other (Anemic) Lines/Catheters IV Catheter Type (from Nrsg): Peripheral IV Assessment/Plan Assessment/Plan 1. Sickle cell crisis -IV hydration -Pain management -Continue hydroxyurea and folic acid 2. Anemia: Secondary to above -Transfuse as needed 3. Leukocytosis: likely reactive. UA and CXR neg -f/u urine culture result -monitor Result Diagram: 04/12/19 0033 04/12/19 0033 Results 24hrs Laboratory Tests Test 04/12/19 00:33 04/12/19 00:42 White Blood Count 14.9 #H Red Blood Count 2.42 L Hemoglobin 8.0 #L Hematocrit 22.2 L Mean Corpuscular Volume 91.7 Mean Corpuscular Hemoglobin 33.1 H Mean Corpuscular Hemoglobin Concent 36.0 Red Cell Distribution Width 21.3 H Platelet Count 206 Mean Platelet Volume 11.5 H Immature Granulocytes % 1.400 H Neutrophils % Segmented Neutrophils % (Manual) 41 Band Neutrophils % (Manual) 1 Lymphocytes % Lymphocytes % (Manual) 50 Reactive Lymphocytes % (Manual) 2 H Monocytes % Monocytes % (Manual) 4 Eosinophils % Eosinophils % (Manual) 1 Basophils % Myelocytes % (Manual) 1 H Nucleated Red Blood Cells % 9 H Immature Granulocytes # 0.210 H Neutrophils # Neutrophils # (Manual) 6.1 Band Neutrophils # 0.1 Lymphocytes (Manual) 7.4 H Lymphocytes # Reactive Lymphocytes # 0.2 H Monocytes # Monocytes # (Manual) 0.5 Eosinophils # Basophils # Myelocytes # 0.1 H Nucleated Red Blood Cells # Platelet Estimate NORMAL Giant Platelets 5 H Polychromasia 3+ Poikilocytosis 2+ Anisocytosis 2+ Macrocytosis 2+ Sickle Cells 1+ Target Cells 1+ Absolute Reticulocyte Count 0.670 H Percent Reticulocyte Count 27.7 H Sodium Level 141 Potassium Level 4.6 Chloride Level 105 Carbon Dioxide Level 28 Anion Gap 8 Blood Urea Nitrogen 10 Creatinine 0.79 Est Glomerular Filtrat Rate mL/min > 60 Glucose Level 89 Calcium Level 9.7 Total Bilirubin 2.6 H Direct Bilirubin 0.00 Indirect Bilirubin 2.6 H Aspartate Amino Transf (AST/SGOT) 116 H Alanine Aminotransferase (ALT/SGPT) 84 H Alkaline Phosphatase 137 H Troponin I < 0.012 Total Protein 8.6 H Albumin 4.5 Globulin 4.10 H Albumin/Globulin Ratio 1.09 Bedside Urine pH (LAB) 7.0 Bedside Urine Protein (LAB) Negative Bedside Urine Glucose (UA) Negative Bedside Urine Ketones (LAB) Negative Bedside Urine Blood Trace-intact H Bedside Urine Nitrite (LAB) Negative Bedside Urine Leukocyte Esterase (L Negative POC Beta HCG, Qualitative NEGATIVE HPI/ROS Admit Date/Time Admit Date/Time Hx of Present Illness Patient is a 23-year-old female with a history of sickle cell disease who presents the ER complaining of back pain and chest pain. Chest pain is somewhat diffuse but mainly located in the mid chest and back pain is in the upper back region. She said it similar to when she has her sickle cell crisis. She was admitted here last month with a similar symptoms and was managed for sickle cell crisis. She said she would like Dilaudid with Benadryl for her pain When she presented to ER, vitals were stable. Labs shows WBC of 15,000, hemoglobin 8, she has elevated liver enzymes. Patient stated she has to go to work at 3 PM tomorrow and as such she would like to be discharged tomorrow morning. PMH/Family/Social Past Medical History Medical History: other (See HPI) Medications Current Medications Ondansetron HCl (Zofran Inj) 4 mg ER BRIDGE PRN IV NAUSEA/VOMITING; Start 04/12/19 at 03:00; Stop 04/13/19 at 02:59 Acetaminophen (Tylenol Tab) 650 mg ER BRIDGE PRN PO .MILD PAIN 1-3 OR TEMP; Start 04/12/19 at 03:00; Stop 04/13/19 at 02:59 Coded Allergies: ibuprofen (Verified Allergy, Unknown, 03/09/19) Past Surgical History Past Surgical Hx: other (See HPI) Family History Significant Family History: no pertinent family hx Social History Alcohol Use: other Smoking Status: Never smoker Drug Use: other Exam/Review of Systems Vital Signs Vitals Vital Signs Date Temp Pulse Resp B/P (MAP) Pulse Ox O2 O2 Flow FiO2 Time Delivery Rate 04/12/19 85 18 108/58 100 Room Air 04:43 (75) 04/12/19 2 00:26 04/11/19 99.1 23:43 Exam Constitutional: other (Appears slightly sleepy but fully arousable and answering questions appropriately) Head: normocephalic, atraumatic Eyes: EOMI, PERRL Respiratory: clear to auscultation, normal air movement Cardiovascular: regular rate and rhythm, nl pulses Gastrointestinal: soft, non-tender Musculoskeletal: other (Tenderness to palpation of upper back pain and anterior chest) Extremities: normal pulses ANA ROSA ESPINO MD Apr 12, 2019 06:13
[2019-04-12] MEDS ORDERED: ALBUTEROL/IPRATROPIUM (NEB) 3 ML AMP HHN PRN (06:30)
[2019-04-12] MEDS ORDERED: HYDROCODONE/APAP (5/325) TAB PO PRN (06:30)
[2019-04-12] MEDS ORDERED: NACL 0.9% 3 ML SYG IV SCH (06:30)
[2019-04-12] MEDS: SOD CHLORIDE 0.9% 1,000 ML IV SCH ×3 (07:51→23:06)
[2019-04-12] MEDS ORDERED: HYDROmorphONE 0.5 MG/0.5 ML SYG IV STA (08:29)
[2019-04-12] MEDS ORDERED: NON-FORMULARY/PATIENT OWN MED (Deferasirox (Jadenu) 360 MG) PO SCH (09:00)
[2019-04-12] MEDS: HYDROXYUREA 500 MG CAP PO SCH ×2 (09:10→20:39)
[2019-04-12] MEDS: FOLIC ACID 1 MG TAB PO SCH (09:10)
[2019-04-12 10:00] VITALS: Ht 154.9 cm; Wt 48.7 kg
[2019-04-12] MEDS: oxyCODONE 15 MG TAB PO PRN ×2 (10:06→21:35)
[2019-04-12] MEDS ORDERED: HYDROmorphONE 1 MG/ML SYG ONE (11:15)
[2019-04-12] MEDS: HYDROmorphONE 1 MG/ML SYG IV PRN ×2 (12:49→16:49)
--- NOTE | 2019-04-12 13:46 | PN ---
Date/Time of Note Date/Time of Note DATE: 04/12/19 TIME: 13:42 Assessment/Plan VTE Prophylaxis SCD applied (from Nsg): Yes Pharmacological prophylaxis: heparin Lines/Catheters IV Catheter Type (from Nrsg): Peripheral IV Assessment/Plan Hospital Course Assessment plan 1. Sickle cell crisis Continue IV hydration Pain is management consult to follow. Continue with analgesics for now. On hydroxyurea and folic acid Patient reports no follow-up outside of hospital for this. We will get case management to follow. 2. Anemia Secondary to #1. Monitor and transfuse blood products as needed. Monitor for infection 3. Transaminitis Likely secondary to #1. Monitor trend. Disposition plan. Pain management consult to follow. Continue with analgesics. Continue with IV hydration. Monitor for infection. Continue to monitor in- house Discussed POC with Dr. Aguilar Result Diagram: 04/12/19 0033 04/12/19 0033 Results 24hrs Laboratory Tests Test 04/12/19 00:33 04/12/19 00:42 White Blood Count 14.9 #H Red Blood Count 2.42 L Hemoglobin 8.0 #L Hematocrit 22.2 L Mean Corpuscular Volume 91.7 Mean Corpuscular Hemoglobin 33.1 H Mean Corpuscular Hemoglobin Concent 36.0 Red Cell Distribution Width 21.3 H Platelet Count 206 Mean Platelet Volume 11.5 H Immature Granulocytes % 1.400 H Neutrophils % Segmented Neutrophils % (Manual) 41 Band Neutrophils % (Manual) 1 Lymphocytes % Lymphocytes % (Manual) 50 Reactive Lymphocytes % (Manual) 2 H Monocytes % Monocytes % (Manual) 4 Eosinophils % Eosinophils % (Manual) 1 Basophils % Myelocytes % (Manual) 1 H Nucleated Red Blood Cells % 9 H Immature Granulocytes # 0.210 H Neutrophils # Neutrophils # (Manual) 6.1 Band Neutrophils # 0.1 Lymphocytes (Manual) 7.4 H Lymphocytes # Reactive Lymphocytes # 0.2 H Monocytes # Monocytes # (Manual) 0.5 Eosinophils # Basophils # Myelocytes # 0.1 H Nucleated Red Blood Cells # Platelet Estimate NORMAL Giant Platelets 5 H Polychromasia 3+ Poikilocytosis 2+ Anisocytosis 2+ Macrocytosis 2+ Sickle Cells 1+ Target Cells 1+ Absolute Reticulocyte Count 0.670 H Percent Reticulocyte Count 27.7 H Sodium Level 141 Potassium Level 4.6 Chloride Level 105 Carbon Dioxide Level 28 Anion Gap 8 Blood Urea Nitrogen 10 Creatinine 0.79 Est Glomerular Filtrat Rate mL/min > 60 Glucose Level 89 Calcium Level 9.7 Total Bilirubin 2.6 H Direct Bilirubin 0.00 Indirect Bilirubin 2.6 H Aspartate Amino Transf (AST/SGOT) 116 H Alanine Aminotransferase (ALT/SGPT) 84 H Alkaline Phosphatase 137 H Troponin I < 0.012 Total Protein 8.6 H Albumin 4.5 Globulin 4.10 H Albumin/Globulin Ratio 1.09 Bedside Urine pH (LAB) 7.0 Bedside Urine Protein (LAB) Negative Bedside Urine Glucose (UA) Negative Bedside Urine Ketones (LAB) Negative Bedside Urine Blood Trace-intact H Bedside Urine Nitrite (LAB) Negative Bedside Urine Leukocyte Esterase (L Negative POC Beta HCG, Qualitative NEGATIVE Subjective 24 Hr Interval Summary Free Text/Dictation Reports generalized pain. States that she does not have outpatient follow-up for her sickle cell crisis Exam/Review of Systems Exam Vitals Vital Signs Date Temp Pulse Resp B/P (MAP) Pulse Ox O2 O2 Flow FiO2 Time Delivery Rate 04/12/19 95 16 105/64 95 Nasal 2.0 09:31 (78) Cannula 04/11/19 99.1 23:43 Constitutional: alert, oriented Psych: nl mood/affect Head: normocephalic Neck: supple, non-tender Respiratory: clear to auscultation Cardiovascular: regular rate and rhythm Gastrointestinal: soft Musculoskeletal: nl extremities to inspection Neurological: [employer]IM[employer] O[employer]ATOR II-XII intact, nl mental status, nl speech Results Results 24hrs Laboratory Tests Test 04/12/19 00:33 04/12/19 00:42 White Blood Count 14.9 #H Red Blood Count 2.42 L Hemoglobin 8.0 #L Hematocrit 22.2 L Mean Corpuscular Volume 91.7 Mean Corpuscular Hemoglobin 33.1 H Mean Corpuscular Hemoglobin Concent 36.0 Red Cell Distribution Width 21.3 H Platelet Count 206 Mean Platelet Volume 11.5 H Immature Granulocytes % 1.400 H Neutrophils % Segmented Neutrophils % (Manual) 41 Band Neutrophils % (Manual) 1 Lymphocytes % Lymphocytes % (Manual) 50 Reactive Lymphocytes % (Manual) 2 H Monocytes % Monocytes % (Manual) 4 Eosinophils % Eosinophils % (Manual) 1 Basophils % Myelocytes % (Manual) 1 H Nucleated Red Blood Cells % 9 H Immature Granulocytes # 0.210 H Neutrophils # Neutrophils # (Manual) 6.1 Band Neutrophils # 0.1 Lymphocytes (Manual) 7.4 H Lymphocytes # Reactive Lymphocytes # 0.2 H Monocytes # Monocytes # (Manual) 0.5 Eosinophils # Basophils # Myelocytes # 0.1 H Nucleated Red Blood Cells # Platelet Estimate NORMAL Giant Platelets 5 H Polychromasia 3+ Poikilocytosis 2+ Anisocytosis 2+ Macrocytosis 2+ Sickle Cells 1+ Target Cells 1+ Absolute Reticulocyte Count 0.670 H Percent Reticulocyte Count 27.7 H Sodium Level 141 Potassium Level 4.6 Chloride Level 105 Carbon Dioxide Level 28 Anion Gap 8 Blood Urea Nitrogen 10 Creatinine 0.79 Est Glomerular Filtrat Rate mL/min > 60 Glucose Level 89 Calcium Level 9.7 Total Bilirubin 2.6 H Direct Bilirubin 0.00 Indirect Bilirubin 2.6 H Aspartate Amino Transf (AST/SGOT) 116 H Alanine Aminotransferase (ALT/SGPT) 84 H Alkaline Phosphatase 137 H Troponin I < 0.012 Total Protein 8.6 H Albumin 4.5 Globulin 4.10 H Albumin/Globulin Ratio 1.09 Bedside Urine pH (LAB) 7.0 Bedside Urine Protein (LAB) Negative Bedside Urine Glucose (UA) Negative Bedside Urine Ketones (LAB) Negative Bedside Urine Blood Trace-intact H Bedside Urine Nitrite (LAB) Negative Bedside Urine Leukocyte Esterase (L Negative POC Beta HCG, Qualitative NEGATIVE Medications Medication Current Medications Ondansetron HCl (Zofran Inj) 4 mg ER BRIDGE PRN IV NAUSEA/VOMITING Last administered on 04/12/19at 09:09; Admin Dose 4 MG; Start 04/12/19 at 03:00; Stop 04/13/19 at 02:59 Acetaminophen (Tylenol Tab) 650 mg ER BRIDGE PRN PO .MILD PAIN 1-3 OR TEMP; Start 04/12/19 at 03:00; Stop 04/13/19 at 02:59 Sodium Chloride 1,000 ml @ 125 mls/hr Q8H IV Last administered on 04/12/19at 07:51; Admin Dose 100 MLS/HR; Start 04/12/19 at 06:08 IV Flush (NS 3 ml) 3 ml PER PROTOCOL IV ; Start 04/12/19 at 06:30 Ondansetron HCl (Zofran Inj) 4 mg Q6H PRN IV NAUSEA/VOMITING; Start 04/12/19 at 06:30 Acetaminophen (Tylenol Tab) 650 mg Q6H PRN PO .PAIN 1-3 OR TEMP; Start 04/12/19 at 06:30 Acetaminophen/ Hydrocodone Bitart (Golf (5/325)) 1 tab Q6H PRN PO .MOD PAIN 4- 6; Start 04/12/19 at 06:30 Acetaminophen/ Hydrocodone Bitart (Golf (5/325)) 2 tab Q6H PRN PO .SEVERE PAIN 7-10; Start 04/12/19 at 06:30 Albuterol/ Ipratropium (Duoneb) 3 ml Q2H RESP THERAPY PRN HHN SHORTNESS OF BREATH; Start 04/12/19 at 06:30 Folic Acid (Folic Acid) 1 mg DAILY PO Last administered on 04/12/19at 09:10; Admin Dose 1 MG; Start 04/12/19 at 09:00 Hydroxyurea (Hydrea) 500 mg BID PO Last administered on 04/12/19at 09:10; Admin Dose 500 MG; Start 04/12/19 at 09:00 Oxycodone HCl (Roxicodone) 15 mg BID PRN PO PAIN Last administered on 04/12/19at 10:06; Admin Dose 15 MG; Start 04/12/19 at 06:30 Hydromorphone HCl (Dilaudid) 1 mg Q4H PRN IV SEVERE PAIN LEVEL 7-10 Last adm inistered on 04/12/19at 12:49; Admin Dose 1 MG; Start 04/12/19 at 11:00 Heparin Sodium (Porcine) (Heparin (5000 Units/1ml)) 5,000 unit Q8 SC ; Start 04/12/19 at 14:00 BARBARA DELGADO NP Apr 12, 2019 13:46
[2019-04-12 14:00] VITALS: BP 111/60; PULSE 92; RESP 16
[2019-04-12] MEDS: HEPARIN 5,000 UNIT/1 ML VIAL SC SCH ×2 (14:00→20:51)
[2019-04-12] MEDS: DIPHENHYDRAMINE 50 MG INJ IV PRN ×2 (16:50→20:38)
[2019-04-12] MEDS: HYDROCODONE/APAP (5/325) TAB PO PRN ×2 (17:25→23:31)
[2019-04-12 20:00] VITALS: BP 107/57; PULSE 84; RESP 19
[2019-04-12] MEDS: HYDROmorphONE 2 MG/ML SYG IV PRN (20:37)
[2019-04-13] MEDS: DIPHENHYDRAMINE 50 MG INJ IV PRN ×4 (00:37→12:25)
[2019-04-13] MEDS: HYDROmorphONE 2 MG/ML SYG IV PRN ×4 (00:37→12:25)
[2019-04-13] MEDS: SOD CHLORIDE 0.9% 1,000 ML IV SCH ×2 (03:58→13:16)
[2019-04-13 04:00] VITALS: BP 104/57; PULSE 103; RESP 19
[2019-04-13] MEDS ORDERED: DIPHENHYDRAMINE 50 MG INJ IV ONE ×2 (04:12→15:48)
[2019-04-13] MEDS: HYDROCODONE/APAP (5/325) TAB PO PRN ×2 (05:33→11:24)
[2019-04-13] MEDS: HEPARIN 5,000 UNIT/1 ML VIAL SC SCH ×2 (05:44→13:25)
[2019-04-13 08:17] VITALS: BP 98/55
[2019-04-13] MEDS: FOLIC ACID 1 MG TAB PO SCH (08:22)
[2019-04-13] MEDS: HYDROXYUREA 500 MG CAP PO SCH (08:23)
[2019-04-13] MEDS: oxyCODONE 15 MG TAB PO PRN (09:20)
[2019-04-13] MEDS ORDERED: GUAIFENESIN 20 MG/ML 5ML CUP PO PRN (10:30)
[2019-04-13 14:30] VITALS: BP 113/72; PULSE 93; RESP 16
[2019-04-13] MEDS ORDERED: HYDR500C3 PO (14:42)
[2019-04-13] MEDS ORDERED: FOLI-49 PO (14:42)
[2019-04-13] MEDS ORDERED: DEFE360T PO (14:42)
--- NOTE | 2019-04-13 14:44 | PDOCDIS ---
Discharge Instructions DIAGNOSIS Discharge Diagnosis 1. Sickle cell crisis 2. Anemia 3. Transaminitis CONDITION [id number] Patient Condition: [id number] Stable HOME CARE INSTRUCTIONS: [id number] Diet Instructions: [id number] Regular FOLLOW UP/APPOINTMENTS Follow-up Plan 1. follow up with Dr. Edilberto Mahajan for further management of your sickle cell disease Office Address [address] [place] [address], [address] [place] [address] Office BARBARA DELGADO NP Apr 13, 2019 14:44
[2019-04-13] MEDS ORDERED: DIPHENHYDRAMINE 50 MG INJ IV PRN (15:00)
[2019-04-13] MEDS ORDERED: HYDROmorphONE 2 MG/ML SYG IV ONE (15:00)
--- NOTE | 2019-04-13 20:26 | DS ---
Date/Time of Note Date/Time of Note DATE: 04/13/19 TIME: 20:22 Discharge Summary Admission/Discharge Info Admit Date/Time Apr 12, 2019 at 03:30 Discharge Date/Time Apr 13, 2019 at 16:00 Discharge Diagnosis 1. Sickle cell crisis 2. Anemia 3. Transaminitis Patient Condition: Stable Hospital Course This is a 23-year-old female with history of sickle cell disease who came to the hospital complaining of back pain and chest pain. She reports that she had similar symptoms when she had a recent sickle cell crisis which was roughly a month ago. Patient does report good pain control with Dilaudid and Benadryl with her Dilaudid. She states she takes Benadryl due to itchiness when she takes opioid analgesic however states that she has been taking Benadryl with opioid analgesic for long time. She was with leukocytosis and anemic secondary to her sickle cell disease. We did place her on IV hydration and continued her on her hydroxyurea and Jadenu and folic acid. She was also seen by pain management consult to help with analgesic regimen. She was noted with some transaminitis during her stay which did downtrend. During the course of stay she did improve. She did report better pain control and she did state that she felt she was okay to go home on the day of discharge. She was advised to follow-up with Dr. Edilberto Langston for further management and care of her sickle cell disease. The plan of care was discussed with the patient and she verbalized understanding. On the day of discharge patient was in stable condition Discussed POC with Dr. Aguilar [place] Meds Active Scripts Deferasirox (Jadenu) 360 Mg Tablet, 360 MG PO DAILY, #30 TAB Prov:BARBARA DELGADO NP 04/13/19 Folic Acid* (Folic Acid*) 1 Mg Tablet, 1 MG PO DAILY, #30 TAB Prov:BARBARA DELGADO NP 04/13/19 Hydroxyurea* (Hydroxyurea*) 500 Mg Capsule, 500 MG PO BID, #60 CAP Prov:BARBARA DELGADO NP 04/13/19 Oxycodone Hcl* (IR) (Oxycodone Hcl*) 15 Mg Tablet, 15 MG PO BID PRN for PAIN, #14 TAB Prov:BARBARA DELGADO NP 03/13/19 Follow-up Plan 1. follow up with Dr. Edilberto Mahajan for further management of your sickle cell disease Office Address [address] [facility], [address] [place] [address] Office Primary Care Provider Care Physician No Primary Time spent on discharge: > 30 minutes Pending Labs Laboratory Tests Test 04/13/19 05:32 White Blood Count 12.6 10^3/ul (4.8-10.8) Red Blood Count 2.27 10^6/ul (4.20-5.40) Hemoglobin 7.5 g/dl (12.0-16.0) Hematocrit 20.5 % (37.0-47.0) Mean Corpuscular Volume 90.3 fl (82.0-101.0) Mean Corpuscular Hemoglobin 33.0 pg (29.0-33.0) Mean Corpuscular Hemoglobin Concent 36.6 g/dl (32.0-37.0) Red Cell Distribution Width 20.7 % (11.5-14.5) Platelet Count 181 10^3/UL (140-415) Mean Platelet Volume 11.9 fl (7.4-10.4) Immature Granulocytes % 1.000 % (0.001-0.429) Neutrophils % 53.2 % (39.0-77.0) Lymphocytes % 39.1 % (15.0-51.0) Monocytes % 5.2 % (0.0-11.0) Eosinophils % 1.0 % (0.0-7.0) Basophils % 0.5 % (0.0-2.0) Nucleated Red Blood Cells % 14.1 /100WBC (0.0-0.0) Immature Granulocytes # 0.120 10^3/ul (0.0-0.031) Neutrophils # 6.7 10^3/ul (1.6-7.5) Lymphocytes # 4.9 10^3/ul (0.8-2.9) Monocytes # 0.7 10^3/ul (0.3-0.9) Eosinophils # 0.1 10^3/ul (0.0-0.5) Basophils # 0.1 10^3/ul (0.0-0.1) Nucleated Red Blood Cells # 1.8 10^3/ul (0.0-0.0) Sodium Level 140 mmol/L (135-144) Potassium Level 4.1 mmol/L (3.5-5.1) Chloride Level 105 mmol/L (97-110) Carbon Dioxide Level 27 mmol/L (21-31) Anion Gap 8 (5-13) Blood Urea Nitrogen 5 mg/dl (7-20) Creatinine 0.42 mg/dl (0.44-1.00) Est Glomerular Filtrat Rate mL/min > 60 mL/min (>60) Glucose Level 83 mg/dl (70-220) Calcium Level 8.9 mg/dl (8.4-10.2) Phosphorus Level 4.4 mg/dl (2.5-4.9) Magnesium Level 1.8 mg/dl (1.7-2.5) Total Bilirubin 2.6 mg/dl (0.2-1.3) Direct Bilirubin 0.00 mg/dl (0.00-0.20) Indirect Bilirubin 2.6 mg/dl (0-1.1) Aspartate Amino Transf (AST/SGOT) 97 IU/L (15-46) Alanine Aminotransferase (ALT/SGPT) 75 IU/L (13-69) Alkaline Phosphatase 113 IU/L (42-121) Total Protein 7.5 g/dl (6.1-8.1) Albumin 4.0 g/dl (3.3-4.9) Globulin 3.50 g/dl (1.3-3.2) Albumin/Globulin Ratio 1.14 BARBARA DELGADO NP Apr 13, 2019 20:26
== END 2019-04-13 16:00 | disposition home or self-care (01) | DRG 812 ==
LOC: E/R 23:39 → PP2 04-12 02:43 → OBSVTOIN 04-12 03:30 → EDBEDREQSVC 04-12 08:13 → EDBEDREQ 04-12 08:13 → PP2 04-12 09:47
PROVIDERS: ADMIT Internal Medicine; ATTEND Internal Medicine
DX: D57.00 Hb-SS disease with crisis, unspecified (principal)
CPT/HCPCS: 36415; 71045; 80053; 81003; 81025; 83735; 84100; 84484; 85025; 85045; 87070; 93005; 96374; 96375; 96376; G0378; J1170; J1200; J1644; J2270; J2405; J7030

== ENCOUNTER 2019-05-13 18:16 | Inpatient (IN) | payer MEDICAID ==
[~2019-05-13] VITALS: Ht 157.5 cm; Wt 48.7 kg
[2019-05-13] MEDS ORDERED: SOD CHLORIDE 0.9% 500 ML IV STA (19:03)
[2019-05-13] MEDS ORDERED: morphine 4 MG/ML VIAL IV STA (19:03)
--- NOTE | 2019-05-13 19:18 | ERD ---
ER Documentation Chief Complaint Chief Complaint SICKLE CELL PAIN, TOOK 2 SOMAS, 1 OXYCODONE 15 MG,AMBIEN 5 MGMORPHINE 5 MG HPI 23-year-old female history of sickle cell disease. Takes oxycodone at home. Was in her normal state of health until today when she developed lower back pain and mild chest pain. No shortness of breath, no infectious symptoms. No nausea or vomiting. Patient took one Soma, one unknown sleeping pill and one unknown milligram of oxycodone at home these did not alleviate her pain so she came to the emergency department. Patient states that the back pain is her usual area of pain for sickle cell. ROS All systems reviewed and are negative except as per history of present illness. Medications Home Meds Active Scripts Deferasirox (Jadenu) 360 Mg Tablet, 360 MG PO DAILY, #30 TAB Prov:BARBARA DELGADO DIRECTOR STAFFING 04/13/19 Folic Acid* (Folic Acid*) 1 Mg Tablet, 1 MG PO DAILY, #30 TAB Prov:BARBARA DELGADO NP 04/13/19 Hydroxyurea* (Hydroxyurea*) 500 Mg Capsule, 500 MG PO BID, #60 CAP Prov:BARBARA DELGADO DIRECTOR STAFFING 04/13/19 Oxycodone Hcl* (IR) (Oxycodone Hcl*) 15 Mg Tablet, 15 MG PO BID PRN for PAIN, #14 TAB Prov:BARBARA DELGADO DIRECT[employer] STAFFING 03/13/19 Allergies Allergies: Coded Allergies: ibuprofen (Verified Allergy, Unknown, 03/09/19) Uncoded Allergies: paper tape (Allergy, Mild, rash , 04/13/19) PMhx/Soc History of Surgery: Yes (RT KNEE PAIN) Anesthesia Reaction: No Hx Neurological Disorder: No Hx Respiratory Disorders: Yes (ALWAYS LOW SPO2 LEVEL PER MOTHER.) Hx Cardiac Disorders: No Hx Psychiatric Problems: No Hx Miscellaneous Medical Probl: Yes (SICKLE CELL SINCE CHILDHOOD.) Hx Alcohol Use: No Hx Substance Use: Yes (MARIJUANA) Hx Tobacco Use: No Smoking Status: Never smoker Physical Exam Vitals Vital Signs Date Temp Pulse Resp B/P (MAP) Pulse Ox O2 O2 Flow FiO2 Time Delivery Rate 05/13/19 98.0 113 16 111/67 96 Room Air 20:40 (82) 05/13/19 Simple 10 19:13 Mask 05/13/19 106 23 106/60 99 Mask 10.0 18:54 (75) 05/13/19 98.2 121 18 112/58 92 18:20 (76) Physical Exam Const: No acute distress Head: Atraumatic Eyes: Normal Conjunctiva ENT: Normal External Ears, Nose and Mouth. Neck: Full range of motion. No meningismus. Resp: Clear to auscultation bilaterally Cardio: Regular rate and rhythm, no murmurs Abd: Soft, non tender, non distended. Normal bowel sounds Skin: No petechiae or rashes Back: No midline or flank tenderness lower lateral back tenderness Ext: No cyanosis, or edema Neur: Awake and alert Psych: Normal Mood and Affect Result Diagram: 05/13/19194205/13/191942 Results 24 hrs Laboratory Tests Test 05/13/19 19:43 White Blood Count 16.7 10^3/ul Red Blood Count 2.12 10^6/ul Hemoglobin 7.3 g/dl Hematocrit 20.1 % Mean Corpuscular Volume 94.8 fl Mean Corpuscular Hemoglobin 34.4 pg Mean Corpuscular Hemoglobin Concent 36.3 g/dl Red Cell Distribution Width 25.4 % Platelet Count 179 10^3/UL Mean Platelet Volume 11.9 fl Immature Granulocytes % 3.400 % Neutrophils % % Segmented Neutrophils % (Manual) 60 % Band Neutrophils % (Manual) 3 % Lymphocytes % % Lymphocytes % (Manual) 34 % Reactive Lymphocytes % (Manual) 2 % Monocytes % % Eosinophils % % Basophils % % Basophils % (Manual) 1 % Nucleated Red Blood Cells % 37 % Immature Granulocytes # 0.570 10^3/ul Neutrophils # 10^3/ul Neutrophils # (Manual) 10.1 10^3/ul Band Neutrophils # 0.5 10^3/ul Lymphocytes (Manual) 5.6 10^3/ul Lymphocytes # 10^3/ul Reactive Lymphocytes # 0.3 10^3/ul Monocytes # 10^3/ul Eosinophils # 10^3/ul Basophils # 10^3/ul Basophils # (Manual) 0.1 10^3/ul Nucleated Red Blood Cells # 10^3/ul Platelet Estimate NORMAL Polychromasia 3+ Poikilocytosis 2+ Anisocytosis 2+ Microcytosis 1+ Macrocytosis 2+ Sickle Cells 3+ Absolute Reticulocyte Count 0.851 X10^6 Percent Reticulocyte Count 40.5 % Sodium Level 140 mmol/L Potassium Level 3.5 mmol/L Chloride Level 105 mmol/L Carbon Dioxide Level 27 mmol/L Anion Gap 8 Blood Urea Nitrogen 10 mg/dl Creatinine 0.44 mg/dl Est Glomerular Filtrat Rate mL/min > 60 mL/min Glucose Level 100 mg/dl Calcium Level 9.3 mg/dl Current Medications Medications Dose Sig/Edyta Start Time Status Last (Trade) Ordered Route PRN Stop Time Admin Dose Reason Admin Sodium 500 ml @ Q1H STAT 05/13/19 DC 05/13/19 Chloride 500 mls/hr IV 19:03 05/13/19 19:42 20:02 Morphine 4 mg ONCE STAT 05/13/19 DC 05/13/19 Sulfate IV 19:03 05/13/19 19:42 (morphine) 19:05 25 mg ONCE ONCE 05/13/19 DC 05/13/19 Diphenhydrami IV 19:30 05/13/19 19:42 ne HCl 19:31 (Benadryl) Procedures/MDM 23-year-old female history of sickle cell presenting with chest pain and back pain. Patient is mildly hypoxic and chest x-rays does show some pulmonary edema. Patient does not have any respiratory symptoms. Pain control fluids given and labs are pending. Will admit patient for possible acute chest. Chest X-ray 1V Interpreted by me: Soft Tissue: No acute abnormalities Bones: No acute abnormalities Mediastinum/Cardiac Silhouette/Lungs: Mild pulmonary edema Impression: Mild pulmonary edema MODE JORDAN MD May 13, 2019 19:18
[2019-05-13] MEDS ORDERED: DIPHENHYDRAMINE 50 MG INJ IV ONE (19:30)
[2019-05-13] MEDS ORDERED: ONDANSETRON 4 MG INJ IV PRN (21:30)
[2019-05-13] MEDS ORDERED: ACETAMINOPHEN 325 MG TAB PO PRN (21:30)
[2019-05-13] MEDS ORDERED: DIPHENHYDRAMINE 50 MG INJ IV PRN (23:00)
[2019-05-13] MEDS ORDERED: morphine 4 MG/ML VIAL IV PRN (23:00)
[2019-05-13 23:07] VITALS: Ht 157.5 cm; Wt 48.7 kg
[2019-05-13 23:09] VITALS: BP 115/67; PULSE 111; RESP 20
[2019-05-14] VITALS (7 sets, daily range): BP systolic 96–120; BP diastolic 55–67; PULSE 84–109; RESP 18–20
[2019-05-14] MEDS ORDERED: HYDROCODONE/APAP (5/325) TAB GTB PRN (00:30)
[2019-05-14] MEDS: HYDROCODONE/APAP (5/325) TAB PO PRN ×3 (00:39→21:40)
[2019-05-14] MEDS ORDERED: ACETAMINOPHEN 325 MG TAB PO PRN (02:30)
[2019-05-14] MEDS ORDERED: ONDANSETRON 4 MG INJ IV PRN (02:30)
[2019-05-14] MEDS ORDERED: NACL 0.9% 3 ML SYG IV SCH (02:30)
[2019-05-14] MEDS ORDERED: ALBUTEROL/IPRATROPIUM (NEB) 3 ML AMP HHN PRN (02:30)
[2019-05-14] MEDS ORDERED: HYDROCODONE/APAP (5/325) TAB PO PRN (02:30)
[2019-05-14] MEDS: morphine 4 MG/ML VIAL IV PRN ×3 (03:02→08:32)
[2019-05-14] MEDS: SOD CHLORIDE 0.9% 1,000 ML IV SCH ×3 (03:05→18:18)
[2019-05-14] MEDS ORDERED: ACETAMINOPHEN 500 MG TAB PO STA ×2 (03:44→14:27)
[2019-05-14] MEDS ORDERED: DIPHENHYDRAMINE 25 MG CAP PO ONE (04:00)
[2019-05-14] MEDS ORDERED: DIPHENHYDRAMINE 50 MG INJ IV PRN (05:00)
--- NOTE | 2019-05-14 06:40 | HP ---
Date/Time of Note Date/Time of Note DATE: 05/14/19 TIME: 06:36 Assessment/Plan VTE Prophylaxis SCD contraindicated: low risk/ambulating Pharmacological prophylaxis: other Lines/Catheters IV Catheter Type (from Nrsg): Peripheral IV Assessment/Plan Assessment/Plan 1. Sickle cell crisis -IV hydration -Pain management -Continue hydroxyurea and folic acid 2. Anemia: Secondary to above -will transfuse PRBCs 3. Persistent leukocytosis: last month, respiratory culture was positive for staph aureus and strep, only resistant to rifampin -Chest x-ray negative -Trach respiratory culture, UA and urine culture -Empiric antibiotic Result Diagram: 05/13/19194205/13/191942 Results 24hrs Laboratory Tests Test 05/13/19 19:43 White Blood Count 16.7 #H Red Blood Count 2.12 L Hemoglobin 7.3 L Hematocrit 20.1 L Mean Corpuscular Volume 94.8 Mean Corpuscular Hemoglobin 34.4 H Mean Corpuscular Hemoglobin Concent 36.3 Red Cell Distribution Width 25.4 #H Platelet Count 179 Mean Platelet Volume 11.9 H Immature Granulocytes % 3.400 H Neutrophils % Segmented Neutrophils % (Manual) 60 Band Neutrophils % (Manual) 3 Lymphocytes % Lymphocytes % (Manual) 34 Reactive Lymphocytes % (Manual) 2 H Monocytes % Eosinophils % Basophils % Basophils % (Manual) 1 Nucleated Red Blood Cells % 37 H Immature Granulocytes # 0.570 H Neutrophils # Neutrophils # (Manual) 10.1 H Band Neutrophils # 0.5 Lymphocytes (Manual) 5.6 H Lymphocytes # Reactive Lymphocytes # 0.3 H Monocytes # Eosinophils # Basophils # Basophils # (Manual) 0.1 H Nucleated Red Blood Cells # Platelet Estimate NORMAL Polychromasia 3+ Poikilocytosis 2+ Anisocytosis 2+ Microcytosis 1+ Macrocytosis 2+ Sickle Cells 3+ Absolute Reticulocyte Count 0.851 H Percent Reticulocyte Count 40.5 H Sodium Level 140 Potassium Level 3.5 Chloride Level 105 Carbon Dioxide Level 27 Anion Gap 8 Blood Urea Nitrogen 10 Creatinine 0.44 Est Glomerular Filtrat Rate mL/min > 60 Glucose Level 100 Calcium Level 9.3 HPI/ROS Admit Date/Time Admit Date/Time May 13, 2019 at 21:23 Hx of Present Illness Patient is a 23-year-old female with a history of sickle cell disease who presents the ER complaining of back pain and chest pain. Chest pain is somewhat diffuse but mainly located in the mid chest and back pain is in the upper back region. She said it is similar to when she has her sickle cell crisis. She was admitted here last month by myself with a similar symptoms and was managed for sickle cell crisis. A month prior, she was also admitted for a sickle cell crisis. When she presented to ER, vitals were stable. Labs shows WBC of almost 17,000, hemoglobin 7.3. PMH/Family/Social Past Medical History Medical History: other (SEE HPI) Medications Current Medications Ondansetron HCl (Zofran Inj) 4 mg ER BRIDGE PRN IV NAUSEA/VOMITING; Start 05/13/19 at 21:30; Stop 05/14/19 at 21:29 Acetaminophen (Tylenol Tab) 650 mg ER BRIDGE PRN PO .MILD PAIN 1-3 OR TEMP; Start 05/13/19 at 21:30; Stop 05/14/19 at 21:29 Acetaminophen/ Hydrocodone Bitart ([place] (5/325)) 2 tab Q4H PRN PO MODERATE P AIN LEVEL 4-6 Last administered on 05/14/19at 05:36; Admin Dose 2 TAB; Start 05/14/19 at 00:30 Morphine Sulfate (morphine) 3 mg Q3H PRN IV SEVERE PAIN LEVEL 7-10 Last administered on 05/14/19at 05:42; Admin Dose 3 MG; Start 05/14/19 at 00:30 Sodium Chloride 1,000 ml @ 125 mls/hr Q8H IV Last administered on 05/14/19at 03:05; Admin Dose 125 MLS/HR; Start 05/14/19 at 02:18 IV Flush (NS 3 ml) 3 ml PER PROTOCOL IV ; Start 05/14/19 at 02:30 Ondansetron HCl (Zofran Inj) 4 mg Q6H PRN IV NAUSEA/VOMITING; Start 05/14/19 at 02:30 Acetaminophen (Tylenol Tab) 650 mg Q6H PRN PO .PAIN 1-3 OR TEMP; Start 05/14/19 at 02:30 Albuterol/ Ipratropium (Duoneb) 3 ml Q2H RESP THERAPY PRN HHN SHORTNESS OF BREATH; Start 05/14/19 at 02:30 Acetaminophen/ Hydrocodone Bitart ([place] (5/325)) 1 tab Q4H PRN PO MILD PAIN LEVEL 1-4; Start 05/14/19 at 02:30 Diphenhydramine HCl (Benadryl) 50 mg Q6H PRN IV itching Last administered on 05/14/19at 04:10; Admin Dose 50 MG; Start 05/14/19 at 05:00 Coded Allergies: ibuprofen (Unverified Allergy, Unknown, 05/14/19) Uncoded Allergies: paper tape (Allergy, Mild, rash , 04/13/19) Past Surgical History Past Surgical Hx: other (SEE HPI) Family History Significant Family History: no pertinent family hx Social History Alcohol Use: other Smoking Status: Unknown if ever smoked Drug Use: other Exam/Review of Systems Vital Signs Vitals Vital Signs Date Temp Pulse Resp B/P (MAP) Pulse Ox O2 O2 Flow FiO2 Time Delivery Rate 05/14/19 98.4 107 20 114/67 95 Nasal 04:00 (83) Cannula 05/14/19 2.0 01:09 Intake and Output 05/13/19 05/13/19 05/14/19 1515:00 23:00 07:00 IntakeIntake Total 300 ml BalanceBalance 300 ml Exam Constitutional: other (NO ACUTE DISTRESS) Head: normocephalic, atraumatic Eyes: PERRL Respiratory: normal air movement Cardiovascular: nl pulses Gastrointestinal: soft Extremities: normal pulses ANA ROSA ESPINO MD May 14, 2019 06:40
[2019-05-14] MEDS: DIPHENHYDRAMINE 50 MG INJ IV PRN ×4 (08:32→20:31)
[2019-05-14] MEDS ORDERED: POTASSIUM CHLORIDE 20 MEQ POWDER FOR ORAL SOLN PO ONE (09:30)
--- NOTE | 2019-05-14 11:13 | PN ---
Date/Time of Note Date/Time of Note DATE: 05/14/19 TIME: 11:11 Assessment/Plan VTE Prophylaxis Risk score (from Nsg)>0 risk: 2 SCD applied (from Nsg): Yes Pharmacological prophylaxis: NA/contraindicated Pharm contraindication: low risk/ambulating Lines/Catheters IV Catheter Type (from Nrsg): Peripheral IV Assessment/Plan Assessment/Plan 23 yo woman with sickle cell disease presents in acute pain crisis #Sickle cell disease #Pain crisis - No vision changes, chest pain, or other concerning features - Aggressive fluid hydration - IV opioids prn - Oxygen nasal cannula - Continue IV benadryl for itching. - Check ferritin for history of iron overload. - PRBC transfusion today. DVT: SCDs GI: None Result Diagram: 05/14/19 0605/14/19 0623 Subjective 24 Hr Interval Summary Free Text/Dictation No acute overnight events. Pain inadequately controlled. She complains of lower back pain. Exam/Review of Systems Exam Vitals Vital Signs Date Temp Pulse Resp B/P (MAP) Pulse Ox O2 O2 Flow FiO2 Time Delivery Rate 05/14/19 Nasal 2.0 09:05 Cannula 05/14/19 98.0 84 18 119/61 100 07:17 (80) Intake and Output 05/13/19 05/13/19 05/14/19 1515:00 23:00 07:00 IntakeIntake Total 300 ml BalanceBalance 300 ml Exam Gen: Thin woman uncomfortable appearing lying in bed. Eyes: PEERL, no icterus HEENT: Moist mucous membranes, clear oropharynx Neck: Supple, no lymphadenopathy Back: Lumbar midline spine tenderness Card: Regular rate and rhythm, no murmurs Pulm: Clear to auscultation bilaterally Abd: Soft, nontender, nondistended. Ext: No cyanosis/clubbing/edema Skin: warm, dry, well perfused. Results Results 24hrs Laboratory Tests Test 05/13/19 19:43 05/14/19 06:23 White Blood Count 16.7 #H 15.5 H Red Blood Count 2.12 L 2.16 L Hemoglobin 7.3 L 7.4 L Hematocrit 20.1 L 20.4 L Mean Corpuscular Volume 94.8 94.4 Mean Corpuscular Hemoglobin 34.4 H 34.3 H Mean Corpuscular Hemoglobin Concent 36.3 36.3 Red Cell Distribution Width 25.4 #H 24.5 H Platelet Count 179 209 Mean Platelet Volume 11.9 H 11.8 H Immature Granulocytes % 3.400 H 2.300 H Neutrophils % 68.6 Segmented Neutrophils % (Manual) 60 Band Neutrophils % (Manual) 3 Lymphocytes % 22.7 Lymphocytes % (Manual) 34 Reactive Lymphocytes % (Manual) 2 H Monocytes % 6.0 Eosinophils % 0.1 Basophils % 0.3 Basophils % (Manual) 1 Nucleated Red Blood Cells % 37 H 35.5 H Immature Granulocytes # 0.570 H 0.350 H Neutrophils # 10.7 H Neutrophils # (Manual) 10.1 H Band Neutrophils # 0.5 Lymphocytes (Manual) 5.6 H Lymphocytes # 3.5 H Reactive Lymphocytes # 0.3 H Monocytes # 0.9 Eosinophils # 0.0 Basophils # 0.1 Basophils # (Manual) 0.1 H Nucleated Red Blood Cells # 5.5 H Platelet Estimate NORMAL Polychromasia 3+ Poikilocytosis 2+ Anisocytosis 2+ Microcytosis 1+ Macrocytosis 2+ Sickle Cells 3+ Absolute Reticulocyte Count 0.851 H Percent Reticulocyte Count 40.5 H Sodium Level 140 140 Potassium Level 3.5 3.3 L Chloride Level 105 104 Carbon Dioxide Level 27 28 Anion Gap 8 8 Blood Urea Nitrogen 10 5 L Creatinine 0.44 0.35 L Est Glomerular Filtrat Rate mL/min > 60 > 60 Glucose Level 100 100 Calcium Level 9.3 9.0 Magnesium Level 1.7 Total Bilirubin 3.0 H Direct Bilirubin 0.00 Indirect Bilirubin 3.0 H Aspartate Amino Transf (AST/SGOT) 116 H Alanine Aminotransferase (ALT/SGPT) 80 H Alkaline Phosphatase 105 Total Protein 7.6 Albumin 4.2 Globulin 3.40 H Albumin/Globulin Ratio 1.23 Medications Medication Current Medications Ondansetron HCl (Zofran Inj) 4 mg ER BRIDGE PRN IV NAUSEA/VOMITING; Start 05/13/19 at 21:30; Stop 05/14/19 at 21:29 Acetaminophen (Tylenol Tab) 650 mg ER BRIDGE PRN PO .MILD PAIN 1-3 OR TEMP; Start 05/13/19 at 21:30; Stop 05/14/19 at 21:29 Acetaminophen/ Hydrocodone Bitart ([place] (5/325)) 2 tab Q4H PRN PO MODERATE PAIN LEVEL 4-6 Last administered on 05/14/19 05:36; Admin Dose 2 TAB; Start 05/14/19 at 00:30 Morphine Sulfate (morphine) 3 mg Q3H PRN IV SEVERE PAIN LEVEL 7-10 Last administered on 05/14/19at 08:32; Admin Dose 3 MG; Start 05/14/19 at 00:30 Sodium Chloride 1,000 ml @ 125 mls/hr Q8H IV Last administered on 05/14/19 03:05; Admin Dose 125 MLS/HR; Start 05/14/19 at 02:18 IV Flush (NS 3 ml) 3 ml PER PROTOCOL IV ; Start 05/14/19 at 02:30 Ondansetron HCl (Zofran Inj) 4 mg Q6H PRN IV NAUSEA/VOMITING; Start 05/14/19 at 02:30 Acetaminophen (Tylenol Tab) 650 mg Q6H PRN PO .PAIN 1-3 OR TEMP; Start 05/14/19 at 02:30 Albuterol/ Ipratropium (Duoneb) 3 ml Q2H RESP THERAPY PRN HHN SHORTNESS OF BREATH; Start 05/14/19 at 02:30 Acetaminophen/ Hydrocodone Bitart ([place] (5/325)) 1 tab Q4H PRN PO MILD PAIN LEVEL 1-4; Start 05/14/19 at 02:30 Diphenhydramine HCl (Benadryl) 50 mg Q4H PRN IV itching Last administered on 05/14/19 08:32; Admin Dose 50 MG; Start 05/14/19 at 07:49 RIKY WOODS MD May 14, 2019 11:13
[2019-05-14] MEDS: HYDROmorphONE 2 MG/ML SYG IV PRN ×3 (12:30→20:32)
[2019-05-14] MEDS: DIPHENHYDRAMINE 50 MG INJ IV ONE ×2 (16:20→16:26)
[2019-05-15] MEDS: DIPHENHYDRAMINE 50 MG INJ IV PRN ×6 (00:32→20:51)
[2019-05-15] MEDS: HYDROmorphONE 2 MG/ML SYG IV PRN ×6 (00:33→20:51)
[2019-05-15] MEDS: HYDROCODONE/APAP (5/325) TAB PO PRN ×5 (01:43→21:49)
[2019-05-15] MEDS: SOD CHLORIDE 0.9% 1,000 ML IV SCH ×4 (02:18→18:18)
[2019-05-15 03:50] VITALS: BP 124/72; PULSE 94; RESP 20
[2019-05-15 07:21] VITALS: BP 101/54; PULSE 82; RESP 18
[2019-05-15 11:29] VITALS: BP 145/73; PULSE 69; RESP 18
[2019-05-15 11:35] VITALS: BP 111/58; PULSE 93; RESP 18
--- NOTE | 2019-05-15 12:01 | PN ---
Date/Time of Note Date/Time of Note DATE: 05/15/19 TIME: 11:59 Assessment/Plan VTE Prophylaxis Risk score (from Nsg)>0 risk: 3 SCD applied (from Ns): No SCD contraindicated: low risk/ambulating Pharmacological prophylaxis: NA/contraindicated Pharm contraindication: low risk/ambulating Lines/Catheters IV Catheter Type (from Nrsg): Peripheral IV Assessment/Plan Assessment/Plan 23 yo woman with sickle cell disease presents in acute pain crisis #Sickle cell disease #Pain crisis - No vision changes, chest pain, or other concerning features - Aggressive fluid hydration - IV opioids prn - Oxygen nasal cannula - Continue IV benadryl for itching. - Check ferritin for history of iron overload. - PRBC transfusion today. DVT: SCDs GI: None Result Diagram: 05/15/19 0656 05/15/19 06 Subjective 24 Hr Interval Summary Free Text/Dictation New productive cough this morning, occasional green sputum. Back pain with deep inspiration. Otherwise says pain slightly better. Exam/Review of Systems Exam Vitals Vital Signs Date Temp Pulse Resp B/P (MAP) Pulse Ox O2 O2 Flow FiO2 Time Delivery Rate 05/15/19 98.3 93 18 111/58 93 11:35 (75) 05/15/19 Nasal 2.0 08:22 Cannula Intake and Output 05/14/19 05/14/19 05/15/19 1515:00 23:00 07:00 IntakeIntake Total 740 ml 1350 ml 1150 ml OutputOutput Total 1 ml 1 ml BalanceBalance 739 ml 1349 ml 1150 ml Exam Gen: Thin woman uncomfortable appearing lying in bed. Eyes: PEERL, no icterus HEENT: Moist mucous membranes, clear oropharynx Neck: Supple, no lymphadenopathy Back: Lumbar midline spine tenderness Card: Regular rate and rhythm, no murmurs Pulm: Clear to auscultation bilaterally Abd: Soft, nontender, nondistended. Ext: No cyanosis/clubbing/edema Skin: warm, dry, well perfused. Results Results 24hrs Laboratory Tests Test 05/15/19 04:30 05/15/19 05:41 05/15/19 06:56 Urine Color YELLOW Urine Clarity CLEAR Urine pH 6.0 Urine Specific [place] 1.011 Urine Ketones 1+ H Urine Nitrite NEGATIVE Urine Bilirubin NEGATIVE Urine Urobilinogen 1+ H Urine Leukocyte Esterase NEGATIVE Urine Microscopic RBC 32 H Urine Microscopic WBC 1 Urine Hemoglobin 3+ H Urine Glucose NEGATIVE Urine Total Protein NEGATIVE Lab Scanned Report BLOOD TRANSFUSION White Blood Count 11.2 #H Red Blood Count 3.14 #L Hemoglobin 10.2 #L Hematocrit 28.9 #L Mean Corpuscular Volume 92.0 Mean Corpuscular Hemoglobin 32.5 Mean Corpuscular 35.3 Hemoglobin Concent Red Cell Distribution Width 19.7 H Platelet Count 213 Mean Platelet Volume 12.3 H Immature Granulocytes % 0.900 H Neutrophils % 69.8 Lymphocytes % 23.4 Monocytes % 5.3 Eosinophils % 0.3 Basophils % 0.3 Nucleated Red Blood Cells % 34.4 H Immature Granulocytes # 0.100 H Neutrophils # 7.8 H Lymphocytes # 2.6 Monocytes # 0.6 Eosinophils # 0.0 Basophils # 0.0 Nucleated Red Blood Cells # 3.8 H Sodium Level 140 Potassium Level 3.3 L Chloride Level 106 Carbon Dioxide Level 28 Anion Gap 6 Blood Urea Nitrogen 5 L Creatinine 0.35 L Est Glomerular Filtrat > 60 Rate mL/min Glucose Level 81 Calcium Level 8.9 Phosphorus Level 3.6 Magnesium Level 1.7 Iron Level 72 Total Iron Binding Capacity 186 L Percent Iron Saturation 39 Ferritin 8680.0 H Medications Medication Current Medications Acetaminophen/ Hydrocodone Bitart ([place] (5/325)) 2 tab Q4H PRN PO MODERATE PAIN LEVEL 4-6 Last administered on 05/15/19at 11:27; Admin Dose 2 TAB; Start 05/14/19 at 00:30 Sodium Chloride 1,000 ml @ 125 mls/hr Q8H IV Last administered on 05/15/19at 08:44; Admin Dose 125 MLS/HR; Start 05/14/19 at 02:18 IV Flush (NS 3 ml) 3 ml PER PROTOCOL IV ; Start 05/14/19 at 02:30 Ondansetron HCl (Zofran Inj) 4 mg Q6H PRN IV NAUSEA/VOMITING; Start 05/14/19 at 02:30 Acetaminophen (Tylenol Tab) 650 mg Q6H PRN PO .PAIN 1-3 OR TEMP Last administered on 05/15/19at 00:33; Admin Dose 650 MG; Start 05/14/19 at 02:30 Albuterol/ Ipratropium (Duoneb) 3 ml Q2H RESP THERAPY PRN HHN SHORTNESS OF BREATH; Start 05/14/19 at 02:30 Acetaminophen/ Hydrocodone Bitart ([place] (5/325)) 1 tab Q4H PRN PO MILD PAIN LEVEL 1-4; Start 05/14/19 at 02:30 Diphenhydramine HCl (Benadryl) 50 mg Q4H PRN IV itching Last administered on 05/15/19at 08:44; Admin Dose 50 MG; Start 05/14/19 at 07:49 Hydromorphone HCl (Dilaudid) 2 mg Q4H PRN IV SEVERE PAIN LEVEL 7-10 Last administered on 05/15/19at 08:44; Admin Dose 2 MG; Start 05/14/19 at 11:30 RIKY WOODS MD May 15, 2019 12:01
[2019-05-15 15:25] VITALS: BP 102/55; PULSE 98; RESP 18
[2019-05-15 20:00] VITALS: BP 110/55; PULSE 95; RESP 18
[2019-05-16] VITALS (7 sets, daily range): BP systolic 106–121; BP diastolic 57–70; PULSE 82–93; RESP 15–20
[2019-05-16] MEDS: DIPHENHYDRAMINE 50 MG INJ IV PRN ×6 (00:42→21:03)
[2019-05-16] MEDS: HYDROmorphONE 2 MG/ML SYG IV PRN ×6 (00:43→21:04)
[2019-05-16] MEDS: SOD CHLORIDE 0.9% 1,000 ML IV SCH ×3 (00:48→17:57)
[2019-05-16] MEDS: HYDROCODONE/APAP (5/325) TAB PO PRN ×6 (01:46→22:26)
[2019-05-16] MEDS ORDERED: GUAIFENESIN 20 MG/ML 5ML CUP PO PRN (10:30)
--- NOTE | 2019-05-16 10:44 | PN ---
Date/Time of Note Date/Time of Note DATE: 05/16/19 TIME: 10:43 Assessment/Plan VTE Prophylaxis Risk score (from Nsg)>0 risk: 1 SCD applied (from Ns): No SCD contraindicated: other (no) Pharmacological prophylaxis: NA/contraindicated Pharm contraindication: low risk/ambulating Lines/Catheters IV Catheter Type (from Nrsg): [place] Assessment/Plan Assessment/Plan 23 yo woman with sickle cell disease presents in acute pain crisis #Sickle cell disease #Pain crisis - No vision changes, chest pain, or other concerning features - Aggressive fluid hydration - IV opioids prn - Oxygen nasal cannula - Continue IV benadryl for itching. - Check ferritin for history of iron overload. - PRBC transfusion today. DVT: SCDs GI: None Result Diagram: 05/15/19 0656 05/15/19 06 Subjective 24 Hr Interval Summary Free Text/Dictation No acute overnight events. Still with low back pain. Dry cough with some pleuritic pain. Exam/Review of Systems Exam Vitals Vital Signs Date Temp Pulse Resp B/P (MAP) Pulse Ox O2 O2 Flow FiO2 Time Delivery Rate 05/16/19 Nasal 2.0 07:45 Cannula 05/16/19 98.5 82 16 107/57 91 07:39 (74) Intake and Output 05/15/19 05/15/19 05/16/19 1515:00 23:00 07:00 IntakeIntake Total 700 ml 2525 ml BalanceBalance 700 ml 2525 ml Exam Gen: Thin woman uncomfortable appearing lying in bed. Eyes: PEERL, no icterus HEENT: Moist mucous membranes, clear oropharynx Neck: Supple, no lymphadenopathy Back: Lumbar midline spine tenderness Card: Regular rate and rhythm, no murmurs Pulm: Clear to auscultation bilaterally Abd: Soft, nontender, nondistended. Ext: No cyanosis/clubbing/edema Skin: warm, dry, well perfused. Medications Medication Current Medications Acetaminophen/ Hydrocodone Bitart ([place] (5/325)) 2 tab Q4H PRN PO MODERATE PAIN LEVEL 4-6 Last administered on 05/16/19at 10:05; Admin Dose 2 TAB; Start 05/14/19 at 00:30 Sodium Chloride 1,000 ml @ 125 mls/hr Q8H IV Last administered on 05/16/19at 00:48; Admin Dose 125 MLS/HR; Start 05/14/19 at 02:18 IV Flush (NS 3 ml) 3 ml PER PROTOCOL IV ; Start 05/14/19 at 02:30 Ondansetron HCl (Zofran Inj) 4 mg Q6H PRN IV NAUSEA/VOMITING; Start 05/14/19 at 02:30 Acetaminophen (Tylenol Tab) 650 mg Q6H PRN PO .PAIN 1-3 OR TEMP Last administered on 05/15/19at 00:33; Admin Dose 650 MG; Start 05/14/19 at 02:30 Albuterol/ Ipratropium (Duoneb) 3 ml Q2H RESP THERAPY PRN HHN SHORTNESS OF BREATH; Start 05/14/19 at 02:30 Acetaminophen/ Hydrocodone Bitart ([place] (5/325)) 1 tab Q4H PRN PO MILD PAIN LEVEL 1-4; Start 05/14/19 at 02:30 Diphenhydramine HCl (Benadryl) 50 mg Q4H PRN IV itching Last administered on 05/16/19at 08:41; Admin Dose 50 MG; Start 05/14/19 at 07:49 Hydromorphone HCl (Dilaudid) 2 mg Q4H PRN IV SEVERE PAIN LEVEL 7-10 Last administered on 05/16/19 08:42; Admin Dose 2 MG; Start 05/14/19 at 11:30 Guaifenesin (Robitussin Liquid Cup) 200 mg Q4H PRN PO cough; Start 05/16/19 at 10:30 RIKY WOODS MD May 16, 2019 10:44
[2019-05-17] MEDS: DIPHENHYDRAMINE 50 MG INJ IV PRN ×3 (01:03→09:18)
[2019-05-17] MEDS: HYDROmorphONE 2 MG/ML SYG IV PRN ×3 (01:03→09:19)
[2019-05-17 01:26] VITALS: BP 113/64; PULSE 88; RESP 16
[2019-05-17] MEDS: HYDROCODONE/APAP (5/325) TAB PO PRN ×2 (02:02→06:12)
[2019-05-17] MEDS: SOD CHLORIDE 0.9% 1,000 ML IV SCH (02:03)
[2019-05-17 08:03] VITALS: BP 113/60; PULSE 86; RESP 20
[2019-05-17 09:00] VITALS: BP 84/48; PULSE 93; RESP 17
--- NOTE | 2019-05-17 10:17 | PDOCDIS ---
Discharge Instructions DIAGNOSIS Discharge Diagnosis Sickle cell crisis CONDITION [id number] Patient Condition: [id number] Good HOME CARE INSTRUCTIONS: [id number] Diet Instructions: [id number] Regular ACTIVITY: [id number] Activity Restrictions: [id number] No Restrictions FOLLOW UP/APPOINTMENTS Follow-up Plan 1. For pain, take ibuprofen or acetaminophen [id number] as needed. 2. For severe pain unresponsive to the above, return to the emergency room. 3. Make an appointment with Dr. Mahajan, hematology in 2-4 weeks. OFFICE [phone], TEL # [phone]. 4. Drink plenty of water, especially when it's hot out. RIKY WOODS MD May 17, 2019 10:17
--- NOTE | 2019-05-17 15:11 | DS ---
Date/Time of Note Date/Time of Note DATE: 05/17/19 TIME: 15:08 Discharge Summary Admission/Discharge Info Admit Date/Time May 13, 2019 at 21:23 Discharge Date/Time May 17, 2019 at 11:50 Discharge Diagnosis Sickle cell crisis Patient Condition: Good Hx of Present Illness Patient is a 23-year-old female with a history of sickle cell disease who pres ents the ER complaining of back pain and chest pain. Chest pain is somewhat diffuse but mainly located in the mid chest and back pain is in the upper back region. She said it is similar to when she has her sickle cell crisis. She was admitted here last month by myself with a similar symptoms and was managed for sickle cell crisis. A month prior, she was also admitted for a sickle cell crisis. When she presented to ER, vitals were stable. Labs shows WBC of almost 17,000, hemoglobin 7.3. Hospital Course For her sickle cell crisis she was given dilaudid IV and benadryl IV for pain. Also got 2 units PRBC transfused to Hgb 10.2. Mostly had lower back pain, mild pleuritic chest pain associated with coughing. She was tolerating diet, amb ulating, and saturating well on room air. Tried to keep her on nasal cannula to ameliorate symptoms but she didn't want to use it. She does not have a primary doctor and was given a list of county clinics. She was supposed to see Dr. Mahajan last time. At time of discharge she said lower back pain was not completely resolved but she wanted to go home. Home Meds Active Scripts Folic Acid* (Folic Acid*) 1 Mg Tablet, 1 MG PO DAILY, #30 TAB Prov:RIKY WOODS MD 05/17/19 Deferasirox (Jadenu) 360 Mg Tablet, 360 MG PO DAILY, #30 TAB Prov:BARBARA DELGADO NP 04/13/19 Hydroxyurea* (Hydroxyurea*) 500 Mg Capsule, 500 MG PO BID, #60 CAP Prov:BARBARA DELGADO NP 04/13/19 Discontinued Scripts Oxycodone Hcl* (IR) (Oxycodone Hcl*) 15 Mg Tablet, 15 MG PO BID PRN for PAIN, #14 TAB Prov:BARBARA DELGADO NP 03/13/19 Follow-up Plan 1. For pain, take ibuprofen or acetaminophen [id number] as needed. 2. For severe pain unresponsive to the above, return to the emergency room. 3. Make an appointment with Dr. Mahajan, hematology in 2-4 weeks. OFFICE [phone], TEL # [phone]. 4. Drink plenty of water, especially when it's hot out. Primary Care Provider Care Physician No Primary Time spent on discharge: > 30 minutes RIKY WOODS MD May 17, 2019 15:11
== END 2019-05-17 11:50 | disposition home or self-care (01) | DRG 812 ==
LOC: E/R 18:16 → TEL 21:23 → 2NE 05-16 16:43
PROVIDERS: ADMIT Internal Medicine; ATTEND Internal Medicine
PROC: 30233N1 Transfusion of Nonautologous Red Blood Cells into Peripheral Vein, Percutaneous Approach (ICD-10-PCS; principal; 2019-05-14)
DX: D57.00 Hb-SS disease with crisis, unspecified (principal); Z68.1 Body mass index [BMI] 19.9 or less, adult; D64.9 Anemia, unspecified; D72.829 Elevated white blood cell count, unspecified
CPT/HCPCS: 36430; 71045; 80048; 80053; 81001; 82728; 83540; 83735; 84100; 85025; 85045; 86850; 86900; 86901; 86920; 87086; 93005; 96374; 96375; J1170; J1200; J2270; J7030; J7040; P9011

== ENCOUNTER 2019-08-10 16:22 | Emergency (ER) | payer OTHER ==
[~2019-08-10] VITALS: Ht 157.5 cm; Wt 47.7 kg
[~2019-08-10 16:22] MED LIST changes: +DOCU-216 ORAL; +HYDR-3980 PO; -OXYC15TA PO; +SENN-99 ORAL
[2019-08-10 16:29] VITALS: Ht 157.5 cm; Wt 47.7 kg
[2019-08-10] MEDS ORDERED: SOD CHLORIDE 0.9% 1,000 ML IV STA (16:46)
[2019-08-10] MEDS ORDERED: HYDROmorphONE 1 MG/ML SYG IV STA (16:46)
[2019-08-10] MEDS ORDERED: ONDANSETRON 4 MG INJ IV STA (16:46)
[2019-08-10] MEDS ORDERED: DIPHENHYDRAMINE 50 MG INJ IV ONE (17:00)
[2019-08-10 18:34] VITALS: BP 127/62; PULSE 95; RESP 24
== END 2019-08-10 18:44 | disposition home or self-care (01) ==
LOC: E/R 16:22
DX: D57.00 Hb-SS disease with crisis, unspecified (principal); D64.9 Anemia, unspecified; Z87.891 Personal history of nicotine dependence
CPT/HCPCS: 36415; 80053; 84703; 85025; 85045; 96374; 96375; J1170; J1200; J2405; J7030; Z7502